=== PATIENT | female | born 1975 | race Caucasian/White ===

== ENCOUNTER 2020-03-23 00:56 | Outpatient (CLI) | payer OTHER, BC, SELFPAY ==
[2020-03-23 20:51] LABS: SARS-CoV-2 RNA PCR Negative
== END 2020-03-23 00:57 | disposition home or self-care (01) ==
LOC: ANHCOVIDDT 00:57
PROVIDERS: PCP Internal Medicine; Visit Provider Plastic Surgery
DX: Z01.812 Encounter for preprocedural laboratory examination (principal); Z20.828 Contact with and (suspected) exposure to other viral communicable diseases
CPT/HCPCS: 87635; C9803; U0003

== ENCOUNTER 2020-03-25 01:36 | Day surgery (SDC) | payer OTHER, BC, SELFPAY ==
[2020-03-11 11:00] VITALS: BMI 36.5
--- NOTE | 2020-03-25 07:09 | WPDHPUPDATE1 ---
History and Physical Update Update Date/Time: 03/25/20 07:09 History and Physical has been reviewed, including an updated exam of the patient. There are NO changes in the patient's condition. Risks, benefits, and alternatives have been discussed and questions answered. Patient agrees to proceed with procedure.
[2020-03-25 07:39] VITALS: BP 128/77; PULSE 90; RESP 16; TEMP 36.6; O2SAT 100
--- NOTE | 2020-03-25 07:47 | WPDANESEPPF ---
Anes - Initial Pre Proc Eval Procedure: Operation Date: 03/25/20 09:00 Proposed Procedures p Release Of The Left First Dorsal Compartment - Aniket Beal MD Date/Time: 03/25/20 07:47 Surgeon: Aniket Beal MD Pre Op Diagnosis: Left First Dorsal Compartment Syndrome Patient Data Age: 44 Gender: F Height: 5 ft 8 in Weight: 104.8 kg Last Vital Signs Temp 36.6 C 03/25/20 07:39 Pulse 90 03/25/20 07:39 Resp 16 03/25/20 07:39 BP 128/77 03/25/20 07:39 Pulse Ox 100 03/25/20 07:39 Allergies Allergy/AdvReac Type Severity Reaction Status Date / Time No Known Allergies Allergy Verified 03/25/20 07:03 Home Medications Medication Instructions Recorded Confirmed Type estradiol 1 mg PO DAILY 03/11/20 03/25/20 History topiramate 1 tablet PO DAILY 03/11/20 03/25/20 History Patient hx anesthesia problems: none Family hx anesthesia problems: none PMFSH Past Medical History Medical History Anxiety Hx of migraines Hypertension Family History Family History Father Family history of hypercholesterolemia Mother Family history of migraine headaches Hypertension Family history of development disorder Sibling Asthma Other Diabetes mellitus Family history of malignant neoplasm of breast Social History Social History Smoking status: Never smoker Alcohol intake: never Spiritual care concerns: No Anes - Eval Final PreProcedure Day of Procedure 03/25/20 07:47 Patient weight: obese Heart: regular rate and rhythm Lungs: clear to auscultation Airway: Mallampati scale class II Neurological: alert and oriented Last oral intake: >/= 8 hours ASA classification: III Emergent: no Anesthetic plan: proceed Anesthesia type and monitoring: general GIVS and standard monitoring Informed Consent: The patient's anesthetic plan and its attendant risks and benefits were discussed with the patient/family/POA. Questions were solicited and answers provided to the satisfaction of the patient/family/POA.
[2020-03-25] MEDS: LACTATED RINGERS 1,000 ML 30 ML IV CONT (08:44)
[2020-03-25] MEDS: LIDO 1%/EPINEPHRINE 1:100,000 20 ML VIAL 3 ML INFILTRATE (08:55)
[2020-03-25 09:40] VITALS: BP 139/71; PULSE 93; RESP 14; O2SAT 100
--- NOTE | 2020-03-25 10:02 | PM.OP ---
Procedure Note - Brief Procedure Note - Brief Date of procedure: 03/25/20 Pre-op diagnosis: Left First Dorsal Compartment Syndrome Post-op diagnosis: same Procedure performed: Left 1st dorsal compartment release Anesthesia: MAC Surgeon: Aniket Beal MD Estimated blood loss (mL): 1 Tourniquet time (min): 18 Drains: No Packing: No Pathology: none sent Complications: No immediate complications Condition: stable Disposition: same day
--- NOTE | 2020-03-25 10:04 | PM.PROC ---
Procedure Note - Detailed Date of procedure: 03/25/20 Pre-op diagnosis: Left First Dorsal Compartment Syndrome Post-op diagnosis: same Procedure performed: Left 1st dorsal compartment release Description of procedure: The left radial wrist was marked as the patient waited in the holding area. She was taken to the operating room and placed supine on the operating table. A time-out was held and confirmed. The extremity was prepped and draped in the usual fashion. She was given IV sedation. The appropriate site was infiltrated with 1% lidocaine with epinephrine the tourniquet was inflated to 250 mmHg. The incision was made as marked. Dissection was carefully carried out to expose the 1st dorsal compartment. Branches of the superficial branch of the radial nerve were identified and protected. The 1st dorsal compartment was incised along its volar aspect and opened. The contents were explored for the abductor pollicis brevis. Having identified this the wound was then closed with interrupted 4-0 Monocryl sutures in the dermis. No additional sutures were placed. The usual bandage was applied and the tourniquet was released. She is discharged home with instructions in wound care and follow-up and a prescription for hydrocodone/APAP /325 number 6 was sent. Surgeon: Aniket Beal MD
[2020-03-25 10:10] VITALS: BP 125/72; PULSE 85; RESP 14; O2SAT 100
[2020-03-25 10:20] VITALS: BP 123/75; PULSE 77; RESP 14; O2SAT 100
== END 2020-03-25 10:30 | disposition home or self-care (01) ==
PROVIDERS: PCP Internal Medicine; Visit Provider Plastic Surgery
PROC: (CPT 25000; principal; 2020-03-25 09:00)
DX: M65.4 Radial styloid tenosynovitis [de Quervain] (principal); E66.9 Obesity, unspecified; Z68.35 Body mass index [BMI] 35.0-35.9, adult
CPT/HCPCS: 25000; A9270; J2250; J2405; J2704; J3010; J7120

== ENCOUNTER 2020-11-11 11:24 | Outpatient (CLI) | payer OTHER, BC, SELFPAY | END 2020-11-11 11:25 | disposition home or self-care (01) | PROVIDERS: PCP Internal Medicine; Visit Provider Urology | DX: N39.3 Stress incontinence (female) (male) (principal); Z01.818 Encounter for other preprocedural examination | CPT/HCPCS: 87086 ==

== ENCOUNTER → 2020-11-16 01:15 | Outpatient (CLI) | payer OTHER, BC, SELFPAY ==
[2020-11-16 17:12] LABS: SARS-CoV-2 RNA PCR Negative
== END ==
PROVIDERS: PCP Internal Medicine; Visit Provider Urology
DX: Z01.812 Encounter for preprocedural laboratory examination (principal); Z20.822 Contact with and (suspected) exposure to COVID-19
CPT/HCPCS: C9803; U0003; U0005

== ENCOUNTER 2020-11-19 00:57 | Day surgery (SDC) | payer OTHER, BC, SELFPAY ==
[2020-11-08 15:38] VITALS: BMI 34.2
--- NOTE | 2020-11-15 19:02 | PM.IMHP ---
H&P: HPI History of Present Illness Date/Time: 11/15/20 19:02 45 yo with NICHOLAS * Chief Complaint: NICHOLAS Review of Systems Review of Systems: All systems reviewed & are unremarkable except as noted in HPI and below PMFSH Past Medical History Medical History Anxiety Hx of migraines Hypertension Family History Family History Father Family history of hypercholesterolemia Mother Family history of migraine headaches Hypertension Family history of development disorder Sibling Asthma Other Diabetes mellitus Family history of malignant neoplasm of breast Social History Social History Smoking status: Never smoker Alcohol intake: never Substance use: never Spiritual care concerns: No Meds Home Medications and Allergies Home Medications Medication Instructions Recorded Confirmed Type estradiol 1 mg PO DAILY 03/11/20 11/08/20 History bupropion HCl 150 mg PO QAM 11/08/20 11/08/20 History Allergies Allergy/AdvReac Type Severity Reaction Status Date / Time No Known Allergies Allergy Verified 03/25/20 07:03 Exam Const: General: cooperative and healthy appearing Chest: Chest palpation & inspection: normal inspection of the chest GI: Inspection: normal to inspection Skin: General skin exam: normal color Assessment and Plan Assessment and plan (1) NICHOLAS (stress urinary incontinence, female): Code(s): N39.3 - Stress incontinence (female) (male) Status: Acute Assessment and Plan: urethral sling
[2020-11-19 06:56] VITALS: BP 136/67; PULSE 80; RESP 20; TEMP 36.2; O2SAT 100
--- NOTE | 2020-11-19 07:20 | WPDHPUPDATE1 ---
History and Physical Update Update Date/Time: 11/19/20 07:20 History and Physical has been reviewed, including an updated exam of the patient. There are NO changes in the patient's condition. Risks, benefits, and alternatives have been discussed and questions answered. Patient agrees to proceed with procedure.
[2020-11-19] MEDS: LACTATED RINGERS 1,000 ML 30 ML IV CONT (07:50)
--- NOTE | 2020-11-19 08:36 | WPDANESEPPF ---
Anes - Initial Pre Proc Eval Procedure: Operation Date: 11/19/20 09:00 Proposed Procedures p Urethral Sling - Maciej Del Real MD Date/Time: 11/19/20 08:36 Surgeon: Maciej Del Real MD Pre Op Diagnosis: stress incontinence Patient Data Age: 45 Gender: F Height: 1.73 m Weight: 103 kg Last Vital Signs Temp 36.2 C L 11/19/20 06:56 Pulse 80 11/19/20 06:56 Resp 20 11/19/20 06:56 BP 136/67 11/19/20 06:56 Pulse Ox 100 11/19/20 06:56 Allergies Allergy/AdvReac Type Severity Reaction Status Date / Time No Known Allergies Allergy Verified 11/19/20 07:40 Home Medications Medication Instructions Recorded Confirmed Type estradiol 1 mg PO DAILY 03/11/20 11/19/20 History bupropion HCl 150 mg PO QAM 11/08/20 11/19/20 History Patient hx anesthesia problems: none Family hx anesthesia problems: none PMFSH Past Medical History Medical History (Updated 11/19/20 @ 08:36 by Jeremy Friend MD) Anxiety Hx of migraines Obesity Surgical History Surgical History (Updated 11/19/20 @ 08:36 by Jeremy Friend MD) H/O wrist surgery Family History Family History Father Family history of hypercholesterolemia Mother Family history of migraine headaches Hypertension Family history of development disorder Sibling Asthma Other Diabetes mellitus Family history of malignant neoplasm of breast Social History Social History Smoking status: Never smoker Alcohol intake: never Substance use: never Living arrangements: with family Spiritual care concerns: No Anes - Eval Final PreProcedure Day of Procedure 11/19/20 08:36 Patient weight: obese Heart: regular rate and rhythm Lungs: clear to auscultation Airway: Mallampati scale class II Neurological: alert and oriented Last oral intake: >/= 8 hours ASA classification: II Emergent: no Anesthetic plan: proceed Anesthesia type and monitoring: general GIVS and standard monitoring Informed Consent: The patient's anesthetic plan and its attendant risks and benefits were discussed with the patient/family/POA. Questions were solicited and answers provided to the satisfaction of the patient/family/POA.
[2020-11-19] MEDS: levoFLOXacin 500 MG/D5W 100 ML 500 MG/100 ML BAG 100 MG IVPB (09:10)
[2020-11-19] MEDS: BUPIVACAINE/EPINEPHRINE 0.25% 10 ML VIAL INFILTRATE (09:32)
[2020-11-19 09:40] VITALS: BP 117/67; PULSE 93; RESP 16; O2SAT 96
--- NOTE | 2020-11-19 09:45 | W.PM.PROC2 ---
Procedure Note - Detailed Date of Procedure 11/19/20 Pre-op Diagnosis stress incontinence Post-op Diagnosis same Procedure Performed mid urethral sling cystoscopy Surgeon Maciej Del Real MD Indications This is a female with confirm stress urinary incontinence. She desires surgical correction. She understands the risks of bleeding, infection, injury to the urinary tract, vaginal mesh extrusion, urinary tract mesh erosion, obstructive voiding requiring a secondary procedure, hip and leg pain, dyspareunia, inability to improve overactive bladder symptoms. She agrees to proceed. Description of Procedure She was correctly identified. Informed consent obtained. She was brought the operating room. She was given appropriate anesthesia. She was given appropriate perioperative antibiotics. A time-out performed. I marked out the site of the inner thigh incisions. I anesthetized the skin and made those incisions. I anesthetized the anterior vaginal wall over the mid urethra. I made a 1 cm incision. I dissected out laterally taking great care not to injure the refilled vaginal wall. I passed the helical trocars. First on the left. Then on the right. I did this from the thigh incision towards the vaginal incision. The sling was connected to the trocars and brought out through the thigh incision. I tensioned the sling appropriately. I cut and the plastic sheaths. I then closed the incision with 2 0 Vicryl. On cystoscopy there is no tumors or surgical artifact. There was no surgical artifact in the urethra. I cut the excess sling material. Close incisions with glue. She was awakened and transferred to the PACU in stable condition. Implants Urethral sling Drains No Packing No Pathology none sent Complications No immediate complications Condition stable Disposition PACU
[2020-11-19 10:20] VITALS: BP 149/67; PULSE 100; RESP 16
[2020-11-19] MEDS: oxyCODONE HCL (*CRX) 5 MG TAB IR PO (10:30)
== END 2020-11-19 10:47 | disposition home or self-care (01) ==
PROVIDERS: PCP Internal Medicine; Visit Provider Urology
PROC: (CPT 57288; principal; 2020-11-19 09:00)
DX: N39.3 Stress incontinence (female) (male) (principal); F41.9 Anxiety disorder, unspecified; E66.9 Obesity, unspecified; Z68.34 Body mass index [BMI] 34.0-34.9, adult
CPT/HCPCS: 57288; 87086; A9270; C1771; C9803; J1100; J1885; J1956; J2250; J2405; J2704; J7030; J7120; U0003; U0005

== ENCOUNTER 2021-11-18 10:27 | Outpatient (CLI) | payer OTHER, BC, SELFPAY ==
--- NOTE | ~2021-11-18 | XR_ITS ---
EXAMINATION: XR lumbar spine min 4V DATE: 11/18/2021 11:02 INDICATION: Low back pain TECHNIQUE: Anteroposterior and lateral views in neutral, flexion, and extension of the lumbar spine w ere obtained. COMPARISON: None. FINDINGS: There are 3 mm of retrolisthesis of L5 on S1. No laxity is present with flexion or extensio n. The vertebral body alignment is otherwise normal. There is severe loss of intervertebral disc spac e height at L4-5 and moderate loss of disc space height at L3-4 and L5-S1. Small degenerative osteoph ytes project from the anterior endplates of multiple vertebral bodies. There is moderate facet osteoa rthritis of the lower lumbar spine. Surgical clips in the right upper quadrant are likely from prior cholecystectomy. IMPRESSION: 1. Moderate lower lumbar spondylosis without acute findings. Reviewed, dictated and finalized at location F.
== END 2021-11-18 10:28 | disposition home or self-care (01) ==
PROVIDERS: Visit Provider Neurological Surgery
DX: M47.896 Other spondylosis, lumbar region (principal)
CPT/HCPCS: 72110

== ENCOUNTER 2021-12-07 12:11 | Outpatient (CLI) | payer OTHER, BC, SELFPAY ==
--- NOTE | ~2021-12-07 | XR_ITS ---
EXAMINATION: XR lg joint inject/asp w image DATE: 12/07/2021 13:02 INDICATION: Left hip pain TECHNIQUE: A time-out was performed to verify the patient's name, date of , and procedure to b e performed. The procedure including the risks, benefits, and alternatives was discussed with the pat ient. Risks discussed included bleeding and infection. The patient understood the risks and agreed to proceed. The skin overlying the left hip joint was prepped and draped in usual sterile fashion. An esthetic was administered with 1% lidocaine subcutaneously. A 20 G needle was advanced under fluoros copic guidance into the joint. Injection of small amount of gas confirmed intra-articular position o f the needle. Subsequently, injectate consisting of 7 mL a 5:2 mixture of 1% lidocaine: 10 mg/mL Nas alog for a total dose of 20 mg Kenalog was instilled. Washout of contrast was seen confirming intra-a rticular administration. The needle was removed and the entry site was cleaned and dressed. There we re no immediate complications. Fluoroscopy exposure time was 0.1 minutes. The total number of images was 1. FINDINGS: Real-time fluoroscopy demonstrates the needle in the left hip joint. Patient's pain prior t o procedure:7/10. Patient's pain following the procedure: 0/10. IMPRESSION: 1. Successful left hip joint injection of local anesthetic and steroid with decrease in the patient's presenting pain. Reviewed, dictated and finalized at location A. IMPRESSION: 1. Successful left hip joint injection of local anesthetic and steroid with dec rease in the patient's presenting pain.
== END 2021-12-07 12:12 | disposition home or self-care (01) ==
PROVIDERS: Visit Provider Orthopaedic Surgery
DX: M25.552 Pain in left hip (principal)
CPT/HCPCS: 20610; 77002; J3301

== ENCOUNTER 2022-02-03 12:24 | Outpatient (CLI) | payer OTHER, BC, SELFPAY ==
[2022-02-03 13:01] LABS: Appearance Urine Clear (Clear); Basophils Percent Auto 0.3 % (0.2-1.2); Bilirubin Urine Negative (Negative); Blood Urine Negative (Negative); Color Urine Yellow (Yellow); Eosinophils Absolute Auto 0.1 K/mm3 (0-0.3); Eosinophils Percent Auto 1.2 % (0-4.4); Glucose Urine UA Negative (Negative); Hematocrit 37.4 % (37.0-47.0); Hemoglobin 12.4 g/dL (12.0-15.0); Immature Granulocyte Absolute 0.02 K/mm3 (0.00-0.031); Immature Granulocyte Percent A 0.3 % (0-0.5); Ketones Urine Negative (Negative); Leukocyte Esterase Ur Negative LEU/UL (Negative); Lymphocytes Absolute Auto 2.22 K/mm3 (0.9-3.2); Lymphocytes Percent Auto 38.4 % (18.3-44.2); Mean Corpuscular HGB Conc 33.2 g/dl (32-36); Mean Corpuscular Hemoglobin 29.5 pg (26-34); Mean Corpuscular Volume 88.8 fl (80-100); Mean Platelet Volume 10.4 fl (7.4-10.4); Monocytes Absolute Auto 0.4 K/mm3 (0.1-0.6); Monocytes Percent Auto 7.6 % (2.6-8.5); Neutrophils Percent Auto 52.2 % (45.5-73.1); Nitrate Urine Negative (Negative); Platelet Count Result 263 k/mm3 (150-375); Protein Urine Negative (Negative); Red Blood Count 4.21 M/mm3 (4.2-5.4); Red Cell Distribution Width 13.7 % (11.5-14.5); Urobilinogen Urine 0.2 mg/dL (<2.0); White Blood Count 5.8 K/mm3 (4.5-10.0)
[2022-02-03 13:11] LABS: INR 1.1; Prothrombin Time 13.3 Seconds (11.1-14.7)
[2022-02-03 13:12] LABS: Partial Thromboplastin Time 31.4 SECONDS (22.3-36.8)
[2022-02-03 13:13] LABS: Anion Gap 11 mmol/L (8-16); Blood Urea Nitrogen 15 mg/dL (7-17); Calcium 9.2 mg/dL (8.4-10.2); Carbon Dioxide 30 mmol/L (22-30); Chloride 101 mmol/L (98-107); Estimated Glomerular Filt Rate > 60; Glucose 110 mg/dL (65-110); Sodium 142 mmol/L (137-145)
[2022-02-03 14:17] LABS: Add Urine Microscopic? NO
== END 2022-02-03 12:25 | disposition home or self-care (01) ==
LOC: ANHSURGERY 12:29
PROVIDERS: Visit Provider Neurological Surgery
DX: Z01.818 Encounter for other preprocedural examination (principal)
CPT/HCPCS: 36415; 80048; 81003; 85025; 85610; 85730; 86850; 86900; 86901

== ENCOUNTER 2022-02-08 01:45 | Day surgery (SDC) | payer OTHER, BC, SELFPAY ==
[2022-02-01 14:32] VITALS: BMI 32.8
--- NOTE | 2022-02-01 15:05 | PC.NURSE ---
Report to the Outpatient Waiting Room, entrance under the green pavilion located off [facility], at time _0600 on date _02/08/22 . OR Time: __30 . Time changes happen often and if your time is changed the preop area will call you the afternoon before. - You and your visitor will be asked to self-screen and do not enter if you have any COVID symptoms. - Only one visitor and NO children visitors are allowed at this time. - The patient visitor is requested to leave or wait in car when not with patient due to restrictions. - A mask is required within the hospital. Patients may have clear liquids (water, carbonated beverages, clear teas, apple juice) until 3 hours prior to surgery with a maximum of 20 ounces. - No food from midnight until time of surgery YOU MAY HAVE CLEAR LIQUIDS UNTIL - Take the following medications with a SIP of water the morning of surgery: _ESCITALOPRAM, LORAZEPAM, ESTRADIOL; TOPAMAX Medications to discontinue per physician N/A Date to take last dose N/A Please no make-up, nail macedonian, hairspray, perfume, deodorant, or body powder the day of surgery. No jewelry (including any body piercings) or valuables the day of surgery, leave them at home. Please take a shower or bath the night before, or the morning of, surgery with an antibacterial soap. Wear comfortable, loose fitting clothing. - Jewelry must be removed prior to entering the operating room. Rings and piercings that are not removed may be cut off. - The hospital will not accept responsibility for valuables. - Please leave all valuables, including medications, at home the day of surgery. If you are going home after surgery, a licensed flatbed truck driver must drive you home. - NO public transportation without another adult. - We recommend that an adult stay with you for 24 hours following discharge. - We also recommend that you do not drive, make important decision, drink alcoholic beverages, or take any drugs that were not prescribed by your health care provider for at least 24 hours after your discharge time. Follow any additional instructions given to you from your surgeon. If you or anyone in your household have experienced Covid symptoms in the past week, please notify your surgeon or the nurse liaison at the phone number below for possible testing. Telephone instructions given to __MARY and asked if any additional questions and then verbalized understanding. Patient advised to call surgeon office or pre surgery nurse liaison [phone] if any additional questions.
--- NOTE | 2022-02-07 12:21 | P.PNAN_ITS ---
Anes - Initial Pre Proc Eval Procedure: Operation Date: 02/08/22 07:30 Proposed Procedures p Lumbar Lateral Recess, Lateral Decompression Left L5-S1 - Elizabeth Hassan MD Date/Time: 02/07/22 12:21 Surgeon: Elizabeth Hassan MD Pre Op Diagnosis: lumbar spondylosis Patient Data Age: 46 Gender: F Height: 1.73 m Weight: 98 kg Allergies Allergy/AdvReac Type Severity Reaction Status Date / Time No Known Drug Allergies Allergy no Verified 02/08/22 06:06 allergies Home Medications Medication Instructions Recorded Confirmed Type topiramate 50 mg tablet 50 mg PO BID 11/30/21 02/08/22 History escitalopram oxalate 10 mg tablet 10 mg PO DAILY 01/04/22 02/08/22 History trazodone 50 mg tablet 50 mg PO QHS PRN Insomnia 01/04/22 02/08/22 History estradiol 2 mg tablet 2 mg PO DAILY 02/01/22 02/08/22 History lorazepam 0.5 mg tablet 0.5 mg PO BID PRN Anxiety 02/01/22 02/08/22 History Patient hx anesthesia problems: none Family hx anesthesia problems: none Results Review: All pre-operative results and documents have been reviewed as part of the pre- operative evaluation. [facility] Past Medical History Medical History (Updated 02/07/22 @ 12:22 by Anoop Reyes MD) Anxiety Gallbladder abscess Hernia Hx of migraines Lumbar spondylosis Obesity Surgical History Surgical History H/O neck surgery H/O wrist surgery H/O: hysterectomy History of cholecystectomy History of hernia repair Family History Family History Father Family history of hypercholesterolemia Hypertension Heart disease Mother Family history of migraine headaches Hypertension Family history of development disorder Depression Sibling Asthma Hypertension Grandparent Alcoholism Diabetes mellitus Heart disease Other Cerebrovascular accident Family history of malignant neoplasm of breast Social History Social History Smoking status: Never smoker Alcohol intake: never Substance use: never Substance use type: does not use Living arrangements: with family 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 Informed Consent: The patient's anesthetic plan and its attendant risks and benefits were discussed with the patient/family/POA. Questions were solicited and answers provided to the satisfaction of the patient/family/POA.
[2022-02-08] VITALS (10 sets, daily range): BP systolic 115–136; BP diastolic 72–83; PULSE 70–87; RESP 16–20; TEMP 36.2–36.6; O2SAT 99–100
--- NOTE | ~2022-02-08 | XR_ITS ---
EXAMINATION: XR fluoroscopy no charge DATE: 02/08/2022 8:00 CDT INDICATION: LUMBAR LAT. DECOMPRESSION . TECHNIQUE: 1 fluoroscopic image of the lumbar spine were obtained during lumbar lateral decompression performed by the surgeon. I was not present in the operating room. Fluoroscopy exposure time was 3 s econds. Air Kerma 3.0354 mGy. DAP 0.0602 mGym2. COMPARISON: 11/18/2021 FINDINGS: A radiopaque instrument projects adjacent to the inferior aspect of the inferior articulating facet o f L5, grossly at the level of the L5-S1 disc space. IMPRESSION: Fluoroscopic documentation/localization duringlumbar lateral decompression. Please refer to the opera tive note for complete procedural details . Reviewed, dictated and finalized at location K. IMPRESSION: Fluoroscopic documentation/localization duringlumbar lateral decompression. Ple ase refer to the operative note for complete procedural details .
[2022-02-08] MEDS: LACTATED RINGERS 1,000 ML 30 ML IV CONT ×2 (06:25→09:26)
--- NOTE | 2022-02-08 07:41 | PM.IMHP ---
H&P: HPI History of Present Illness Date/Time: 02/08/22 07:41 Chief Complaint: Tamika He? is a very pleasant 46-year-old female who originally presented and was seen in early November 2021 at the request of? Dr. Baxter with a history of low back and left lower extremity symptoms.? The patient notes symptoms for approximately 6 months.? She notes almost entirely left-sided symptoms.? She describes the pain in the left buttock with radiation to the posterior thigh, calf, chawla, and the dorsal aspect of the foot.? She notes pain that she rates as a 7/10 in the office.? Her pain increases to 10/10 when severe.? She does not have days that are pain-free.? Her pain interrupts her sleep.? She notes sensory change in a similar distribution particularly on the dorsal aspect of the foot.? She does notice subjective sense of weakness in dorsiflexion.? The patient also notes some pain focally about the left hip joint and notes some pain with activities including getting in and out of a car. Tamika has undergone MR imaging the lumbar spine performed on July 26, 2021 at [facility].? This shows mild multilevel spondylitic changes with disc desiccation and loss of disc space height at multiple levels.? At the L5-S1 level there is a broad-based disc bulge disc bulge with a foraminal and extraforaminal disc protrusion.? This contributes to severe left neuroforaminal stenosis and moderate lateral recess stenosis.? At all other levels there is not significant central or neuroforaminal? stenosis. ? Tamika has participated in physical therapy.? She feels that if anything,? this aggravated her symptoms.? She has seen Dr. Baxter and she has undergone epidural steroid injection targeting L5-S1 on the left.? This gave some relief of her pain for perhaps a few hours but did not last for any longer and by the next day she was back to her baseline level of pain.? She has tried gabapentin but had stomach complaints with this medication.? She is taking muscle relaxants which gives some mild amount of relief but no significant relief.? She has not had prior? back surgery At our initial visit Tamika also had described some focal pain in the left hip. She has seen an orthopedic surgeon and a hip injection was recommended. She states that this gave some relief of her hip symptoms but her more distal left lower extremity symptoms persist and are limiting. She has undergone AP lateral and dynamic plain xrays that show degenerative changes, with loss of disc space height at L4-5, but no suggestion of significant listhesis or dynamic instability. ? She is inclined to pursue surgery and is admitted today for this procedure PMF Past Medical History Medical History (Updated 02/07/22 @ 12:22 by Anoop Reyes MD) Anxiety Gallbladder abscess Hernia Hx of migraines Lumbar spondylosis Obesity Surgical History Surgical History H/O neck surgery H/O wrist surgery H/O: hysterectomy History of cholecystectomy History of hernia repair Family History Family History Father Family history of hypercholesterolemia Hypertension Heart disease Mother Family history of migraine headaches Hypertension Family history of development disorder Depression Sibling Asthma Hypertension Grandparent Alcoholism Diabetes mellitus Heart disease Other Cerebrovascular accident Family history of malignant neoplasm of breast Social History Social History Smoking status: Never smoker Alcohol intake: never Substance use: never Substance use type: does not use Living arrangements: with family 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
--- NOTE | 2022-02-08 07:43 | WPDHPUPDATE1 ---
History and Physical Update Update Date/Time: 02/08/22 07:43 History and Physical has been reviewed, including an updated exam of the patient. There are NO changes in the patient's condition. Risks, benefits, and alternatives have been discussed and questions answered. Patient agrees to proceed with procedure.
[2022-02-08] MEDS: ceFAZolin 2 GM/D5W 50 ML 2 GM/50 ML BAG IVPB (07:50)
[2022-02-08] MEDS: LIDO 1%/EPINEPHRINE 1:100,000 50 ML VIAL 10 ML INFILTRATE (08:27)
[2022-02-08] MEDS: methylPREDNISolone ACETATE 40 MG/ML VIAL IM (08:59)
--- NOTE | 2022-02-08 09:10 | W.PM.PROC2 ---
Procedure Note - Detailed Date of Procedure 02/08/22 Pre-op Diagnosis lumbar spondylosis Post-op Diagnosis Same Procedure Performed posterior lumbar decompression L5-S1 with far lateral and neuroforaminal decompression of L5 Surgeon Elizabeth Hassan MD Anesthesia General Indications Tamika He? is a very pleasant 46 year female who presents with low back and left lower extremity pain, sensory change, and mild objective weakness in the setting of lumbar spondylosis with severe neural foraminal and lateral recess stenosis at L5-S1 on the left.? Tamika also has some pain about the left hip both objectively and on examination which, at our initial visit,? made me concerned about a possible contribution of her left hip to her overall symptoms.? Her symptoms, as well as her exam findings, however, fit with an L5 radiculopathy.? She has tried conservative measures that include a formal course of physical therapy as well as 1 epidural steroid injection.? She has also tried neuropathic pain medications and has not tolerated gabapentin.? She is increasingly frustrated by her pain and is concerned about mild weakness which has been present for approximately 6 months time.? She is inclined to consider surgery. I have emphasized that my strong preference is always to exhaust nonoperative measures prior to consideration of surgery.? In Denita's situation, however, she does have a finding of mild weakness.? She has tried a formal course of physical therapy and has not seen greater than 24 hours relief with an epidural steroid injection.? There was concordance between her MRI and her clinical symptoms.? I have explained to her that my primary concern was that her hip might be a contributor to some for pain, but as she has not had full relief with a hip injection, and as Dr. Mosquera appears to agree that a great deal of her symptoms are more referable to the lumbar spondylosis than the left hip, it would be reasonable to pursue surgery..? In this particular instance, surgery would entail a lateral recess as well as a far lateral and neural foraminal decompression at L5-S1 on the left.? We have discussed the indications as well as the risks of surgery, including but not limited to bleeding, infection, CSF leak, numbness, weakness, paralysis stroke coma even .? We have discussed the typical recovery from surgery.? Tamika indicates understanding and asks us to proceed Findings significant neuroforaminal stenosis L5-S1 left Description of Procedure The patient was brought into the operating room where general anesthesia was induced without complications. Appropriate monitoring and access was achieved. the patient was turned into a prone position on the operating table. All extremities were padded The L5-S1 level was confirmed and identified using fluoroscopy. The incision was planned and the site was prepped and draped sterilely. A time out was performed. A linear incision was made using a #10 blade scalpel. Dissection was carried down to the spinous process and the paraspinal muscle was dissected off of the lamina of L5 using electrocautery. Self retaining retractors were advanced. A curette was placed under the L5 lamina and localization was confirmed with fluoroscopy. A high speed carmel drill was used to drill the left hemilamina of L5 and the medial facet. The pars was drilled to facilitate neuroforaminal decompression. The medial facet was removed en bloc and then the bone overlying the lateral recess and nerual foramen was removed using kerossen punches. There was some fat in the lateral recess This was cauterized and the passing and exiting nerve roots were visualized and felt to be free. The disc space was explored and there was not a soft disc herniation, but after the bony and ligamentous decompression the left L5 and S1 neural foramen were free and the nerve roots were no longer compressed. The wound was copiously irrigated. Hemostasis was achieved. Nilson
[2022-02-08] MEDS: fentaNYL CITRATE INJ (*CRX) 100 MCG/2 ML VIAL 25 MCG IV PUSH ×4 (09:59→10:23)
[2022-02-08] MEDS: oxyCODONE HCL (*CRX) 5 MG TAB IR PO (10:39)
--- NOTE | 2022-02-08 10:43 | SUR.PHASEII ---
1041 - DR. AVILES TALKING WITH PT. DR. AVILES STATED THAT PATIENT HAS HER HOME CARE INSTRUCTIONS THAT WERE GIVEN TO HER AT HER OFFICE VISIT.
[2022-02-08] MEDS: ONDANSETRON INJ 4 MG/2 ML VIAL IV PUSH (10:50)
== END 2022-02-08 12:06 | disposition home or self-care (01) ==
PROVIDERS: Visit Provider Neurological Surgery
PROC: (CPT 63030; principal; 2022-02-08 07:30)
DX: M47.816 Spondylosis without myelopathy or radiculopathy, lumbar region (principal); F41.9 Anxiety disorder, unspecified; E66.9 Obesity, unspecified; Z68.31 Body mass index [BMI] 31.0-31.9, adult
CPT/HCPCS: 63056; 36415; 80048; 81003; 85025; 85610; 85730; 86850; 86900; 86901; 99199; A9270; C9290; J0690; J1030; J1100; J2250; J2405; J2704; J2710; J3010; J3370; J7120

== ENCOUNTER 2022-07-03 08:11 | Outpatient (CLI) | payer OTHER, BC, SELFPAY ==
--- NOTE | ~2022-07-03 | MM_ITS ---
EXAMINATION: MM screening ernestine BI w griselda HISTORY: Screening mammogram TECHNIQUE: Craniocaudal and mediolateral oblique 3-D tomosynthesis images were obtained and synthetic 2-D images were generated. CAD analysis was submitted and interpreted. COMPARISON: 08/17/2011 bilateral diagnostic mammography and right breast ultrasound BREAST PARENCHYMAL COMPOSITION: There are scattered areas of fibroglandular density. FINDINGS: There is no evidence of suspicious mass, calcification, or architectural distortion to sugg est malignancy in either breast. There has been no suspicious interval change. IMPRESSION: 1. No mammographic evidence of malignancy. 2. Recommend routine screening mammography in one year. BI-RADS Category 1: Negative Reviewed, dictated and finalized at location A. ROOM OPERATOR
== END 2022-07-03 08:12 | disposition home or self-care (01) ==
LOC: ANHIMG 08:17
PROVIDERS: Visit Provider Obstetrics & Gynecology
DX: Z12.31 Encounter for screening mammogram for malignant neoplasm of breast (principal)
CPT/HCPCS: 77063; 77067

== ENCOUNTER 2022-09-08 10:56 | Outpatient (CLI) | payer OTHER, BC, SELFPAY ==
--- NOTE | ~2022-09-08 | XR_ITS ---
Lumbosacral Spine: AP and lateral views Clinical History: Pain COMPARISON: 11/18/2021 Findings: The normal lordotic curve is maintained. No fracture or subluxation seen. There is advanced degenerative disc narrowing at L4-L5. There is mild degenerative change at L3-L4. The sacroiliac marzena nts are normally outlined. Impression: Advanced degenerative disc narrowing at L4-L5, similar to prior exam. Mild degenerative disc change at L3-L4. Reviewed, dictated and finalized at location . Impression: Advanced degenerative disc narrowing at L4-L5, similar to prior exam. Mild degenerative disc change at L3-L4.
== END 2022-09-08 10:57 | disposition home or self-care (01) ==
PROVIDERS: Visit Provider Neurological Surgery
DX: M51.36 Other intervertebral disc degeneration, lumbar region (principal)
CPT/HCPCS: 72100

== ENCOUNTER 2024-05-20 07:27 | Outpatient (CLI) | payer OTHER, BC, SELFPAY ==
--- NOTE | ~2024-05-20 | XR_ITS ---
AP view of the pelvis and AP and lateral views of the left hip Clinical history: Pain Findings: No acute fracture or dislocation is seen. Osseous alignment is anatomic. Bilateral hip and SI joint spaces are preserved. Degenerative spondylosis of lumbar spine noted. Soft tissues are unrem arkable. Impression: Left hip is unremarkable. Degenerative spondylosis of the visualized lower lumbar spine. Reviewed, dictated and finalized at location M. FEEDER Impression: Left hip is unremarkable. Degenerative spondylosis of the visualized lower lumbar spine.
== END 2024-05-20 07:28 | disposition home or self-care (01) ==
PROVIDERS: PCP Orthopaedic Surgery; Visit Provider Orthopaedic Surgery
DX: M25.552 Pain in left hip (principal); M47.816 Spondylosis without myelopathy or radiculopathy, lumbar region
CPT/HCPCS: 73502

== ENCOUNTER 2024-11-28 14:46 | Outpatient (CLI) | payer OTHER, BC, SELFPAY ==
--- NOTE | ~2024-11-28 | MR_ITS ---
MRI of the left hip Clinical history: Trochanteric bursitis Technique: Coronal T1-weighted, T2-weighted, and proton-density fat-sat images, and axial T1-weighted and proton-density fat-sat images were acquired through the pelvis. Coronal T2-weighted images and c oronal, axial, and sagittal proton-density fat-sat images were acquired through the left hip. Findings: There is no fracture or avascular necrosis of either hip. Bone marrow signals the proximal femora and pelvic bones are unremarkable. There is moderate chondromalacia diffusely involving both h ip joints, mild bilateral joint space narrowing. No significant joint effusion. No left acetabular la bral tear. Visualized musculature about the pelvis and left hip is unremarkable. Visualized tendons are intact. No soft tissue mass or fluid collection. No distinct bursitis evident. IMPRESSION: Moderate degenerative change of both hip joints, as detailed above. No acute abnormality seen. Reviewed, dictated and finalized at location .
== END 2024-11-28 14:47 | disposition home or self-care (01) ==
LOC: MICIMG 14:47
PROVIDERS: PCP Orthopaedic Surgery; Visit Provider Orthopaedic Surgery
DX: M70.62 Trochanteric bursitis, left hip (principal)
CPT/HCPCS: 73721

== ENCOUNTER 2024-12-15 01:23 | Day surgery (SDC) | payer OTHER, BC, SELFPAY ==
[2024-12-09 10:07] VITALS: BMI 31.9
--- NOTE | 2024-12-09 10:33 | PC.NURSE ---
Report to the Outpatient Waiting Room, entrance under the green pavilion located off [facility], at time _0730 on date _12/15/24 . Planned Procedure Time: .? Time changes happen often and if your time is changed the preop area will call you the afternoon before. - You and your visitor will be asked to self-screen and do not enter if you have any COVID symptoms. Please call surgeon if you need to reschedule. - A mask is optional within the hospital at this time. Patients may have clear liquids (water, carbonated beverages, clear teas, apple juice) until 3 hours prior to surgery with a maximum of 20 ounces. - No food from midnight until time of surgery and no smoking, or chewing tobacco (or any form of nicotine). No chewing gum, candy or mints. Take only the following medications with a SIP of water on the morning of surgery: ___ESCITALOPRAM, LORAZEPAM DO NOT STOP ANY OF YOUR OTHER PRESCRIPTION MEDICATIONS PRIOR TO SURGERY EXCEPT THE FOLLOWING Hold all vitamins and supplements for 3 days per anesthesiologist. Medications to discontinue per physician N/A Date to take last dose___N/A Please no make-up, nail hebrew, hairspray, perfume, deodorant, or body powder the day of surgery.? No jewelry (including any body piercings) or valuables the day of surgery, leave them at home.? Please take a shower or bath the night before, or the morning of, surgery with an antibacterial soap.? Wear comfortable, loose fitting clothing.? - Jewelry must be removed prior to entering the operating room.? Rings and piercings that are not removed may be cut off. - The hospital will not accept responsibility for valuables.? - Please leave all valuables, including medications, at home the day of surgery. If you are going home after surgery, a licensed gravel truck driver must drive you home.? - NO public transportation without another adult if you receive anesthesia. - We recommend that an adult stay with you for 24 hours following discharge. - We also recommend that you do not drive, make important decision, drink alcoholic beverages, or take any drugs that were not prescribed by your health care provider for at least 24 hours after your discharge time. Follow any additional instructions given to you from your surgeon. Telephone instructions given to __BETH and asked if any additional questions and then verbalized understanding. Patient advised to call surgeon office or pre surgery nurse liaison [phone] if any additional questions.
[2024-12-15] VITALS (7 sets, daily range): BP systolic 125–153; BP diastolic 70–90; PULSE 65–87; RESP 14–18; TEMP 36.4–36.6; O2SAT 98–100
--- OUTSIDE RECORDS SUMMARY | 2024-12-15 01:26 | XMS_ITS | Data Portability ---
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 Patient will come back in a year unless there are new symptoms. [email or web address] Not available 04/01/2022 10:42:44 04/20/2023 04/20/2023 Annual gynecological exam performed. Patient will come back in a year unless there are new symptoms. Not available 04/20/2023 10:32:42 05/25/2023 05/25/2023 Annual gynecological exam performed. Patient will come back in a year unless there are new symptoms. Not available 05/25/2023 09:31:33 Plan of Treatment Reminders Order Date Submit Date Provider Last Modified By Organization Details Last Modified Time Details Appointments None recorded. Lab None recorded. Referral None recorded. Procedures None recorded. Surgeries None recorded. Imaging None recorded. Medication Orders Vagifem 10 mcg vaginal tablet 2023 024 MARTHA [id number], [address] , [place], [place], [id number], 13:58:41 Bactrim DS 800 mg-160 mg tablet 2023 024 [facility] #[id number], [address], [place], [place], [id number], 4 09:56:40 estradiol 2 mg tablet 2022 023 MARTHA [facility] #[id number], [address], [place], [place], [id number], 3 11:18:23 testosteron e cypionate 100 mg/mL intramuscul ar oil 2021 022 [facility] #[id number], [address], [place], [place], [id number], 3 10:47:11 Patient TargetsNo targets recorded. Patient InstructionsNo instructions recorded. Reason for Referral None Reported. Results Created Date Observation Date Name Description Value Unit Range Abnormal Flag Note LastModifiedBy Organization Detail LastModifiedTime 04/03/20 22 04/03/2022 IMAGE GUIDE D PAP AND HPV REGAR DLESS image guided Pap, HPV regardless of Pap result SEE RESULT S BELOW CASE REPOR T: Cytol ogy Gynec ologi elvie Repor t Case: [id number] [employer] duque Provi shanel: Jerry Powell MD Colle cted: 04/03 0821 Order ing Locat ion: [place] [facility] Recei uday: 04/04 0557 First Scree n: Jeannette Austin, CT Rescr een: Nicole Haynes ret, CT Speci men: Scree cyn Pap - Image d, Cervi x STATE MENT OF ADEQU ACY: Satis facto ry for evalu ation Trans forma tion zone compo nent absen t The absen ce of an endoc ervic al compo nent was confi rmed by an addit ional mariajose ner. FINAL DIAGN OSIS: Negat almaz for Intra epith elial Lesio n or Marylou sexton (NIL) . Elect lv mcduffie ren d by Nicole Haynes ret, CT on 04/06 at 3:29 PM ----- ----- ----- ----- ----- ----- ----- ----- ----- ----- ----- ----- ----- ----- ----- ----- ----- ---- HPV RESUL TS: HPV mRNA E6/E7 : No HPV mRNA Detec joanna NOTE: This high risk HPV mRNA assay detec ts fourt een high- risk HPV types (16, 18, 31, 33, 35, 39, 45, 51, 52, 56, 58, 59, 66, 68) witho ut diffe renti ation . COMME NT: Note: This speci men was revie wed by a Cytot echno logis t and/o r Patho logis t (as indic ated in this repor t) after evalu ation using the Thinp rep Imagi ng Syste m. CLINI ELVIE INFOR MATIO N: Menst rual Statu s: LMP (if appli cable ): Clini elvie Histo ry/Pr eviou s Pap: Type of Neopl elizabeth (if appli cable ): Signi fican t Clini elvie Findi ngs: Other Histo ry: Hormo yaneth (if appli cable ): PAP EDUCA KAM L NOTE: The Pap Test is a scree cyn test with an inher ent false negat almaz rate. Liqui d-bas ed sampl ing may decre ase, but will not elimi brenda, false negat almaz resul ts. A negat almaz resul t does not precl ude the prese nce and/o r devel opmen t of disea se, since the prese nce of abnor mal cells in the sampl e depen ds on the locat ion of the lesio n and sampl ing techn ique. Polo nued regul ar scree cyn is the best metho d of cance r preve ntion . If repor joanna cytol ogic findi ng do not corre late with physi elvie and/o r histo rical findi ngs, [facility] inves tigat ion is recom alice d, as clini malcolm jain nted. Not Available [facility] (Lab) [address], [place], [address], 04/06/2022 16:31:46 05/25/19 24 05/25/2023 IMAGE GUIDE D PAP AND HPV REGAR DLESS image guided Pap, HPV regardless of Pap result SEE RESULT S BELOW CASE REPOR T: Cytol ogy Gynec ologi elvie Repor t Case: [id number] [employer] Provi shanel: Jerry Powell MD Colle cted: 05/25 1348 Order ing Locat ion: [place] Path[facility] [place] Recei uday: 05/28 0724 First Scree n: Jeannette Austin, CT Speci men: Mariajose addison Pap - Image d, Vagin a STATE MENT OF ADEQU ACY: Satis facto ry for evalu ation FINAL DIAGN OSIS: Negat almaz for Intra epith elial Lesio n or Marylou sexton (NIL) . Elect lv mcduffie ren d by Jeannette Austin, CT on 024 at 3:05 PM ----- ----- ----- ----- ----- ----- ----- ----- ----- ----- ----- ----- ----- ----- ----- ----- ----- ---- HPV RESUL TS: HPV mRNA E6/E7 : No HPV mRNA Detec joanna NOTE: This high risk HPV mRNA assay detec ts fourt een high- risk HPV types (16, 18, 31, 33, 35, 39, 45, 51, 52, 56, 58, 59, 66, 68) witho ut diffe renti ation . COMME NT: This speci men was revie wed by a Cytot echno logis t and/o r Patho logis t (as indic ated in this repor t) after evalu ation using the Thinp rep Imagi ng Syste m. CLINI ELVIE INFOR MATIO N: Menst rual Statu s: LMP (if appli cable ): Clini elvie Histo ry/Pr eviou s Pap: Type of Neopl elizabeth (if appli cable ): Signi fican t Clini elvie Findi ngs: Other Histo ry: Hormo yaneth (if appli cable ): PAP EDUCA KAM L NOTE: The Pap Test is a scree cyn test with an inher ent false negat almaz rate. Liqui d-bas ed sampl ing may decre ase, but will not elimi brenda, false negat almaz resul ts. A negat almaz resul t does not precl ude the prese nce and/o r devel opmen t of disea se, since the prese nce of abnor mal cells in the sampl e depen ds on the locat ion of the lesio n and sampl ing techn ique. Polo nued regul ar scree cyn is the best metho d of cance r preve ntion . If repor joanna cytol ogic findi ng do not corre late with physi elvie and/o r histo rical findi ngs, furth er inves tigat ion is recom alice d, as clini malcolm jain nted. Not Available [facility] (Lab) [address], [place], [address], 05/28/2023 17:58:35 07/03/19 23 07/03/2022 MAMMO , scree cyn, bilat eral No observ ation record ed. [facility] [address], [place], [address], 07/10/2022 10:57:15 01/07/20 24 01/04/2024 MAMMO , scree cyn, bilat eral No observ ation record ed. [facility] [address] [place], [address], 01/09/2024 15:52:04 Result Notes None recorded. Problems Name Problem SNOMED Code Status Onset Date Resolution Date Notes Provider Name and Address Organization Details Recorded Time Cyst of ovary Completed 201709/24/2020 Unspecif ied ovarian cyst, unspecif ied side;Rec orded Elsewher e: No Locat ion: [facility] S ource: EHR Conservation Policy Analyst ascencion: N Practi ce ID: 0001 Jluis lable Time: 04:30:00 PM Latasha rothman [facility] 1 10:05:13 Pelvic and perineal pain 198111810 Completed 201709/24/2020 Pelvic pain;Rec orded Elsewher e: No Locat ion: [facility]: N [place] ce ID: 0001 Jluis lable Time: 04:30:00 PM Latasha rothman [facility] 10:05:26 Follicul ar cyst of right ovary [id number] Completed 201709/24/2020 Follicul ar cyst of right ovary;Pr actice ID: 0001 Latasha rothman [facility] 10:05:19 Follicul ar cyst of left ovary [id number] 3697985 Completed 201709/24/2020 Follicul ar cyst of left ovary;Pr actice ID: 0001 Latasha rothman [facility] 10:05:17 Disease 79511201 Completed 201709/24/2020 Oth cond assoc w female genital organs and menstrua l cycle;Pr actice ID: 0001 Latasha rothman [facility] 10:05:15 Procedur e on genitour inary system Completed 201709/24/2020 Encounte r for surgical aftercar e followin g surgery on the genitour inary system;R ecorded Elsewher e: No Locat ion: [facility]: N [place] ce ID: 0001 Jluis lable Time: 10:00:00 AM Latasha rothman [facility] 10:05:30 Postoper ative care Completed 201709/24/2020 Encounte r for surgical aftercar e followin g surgery on the genitour inary system;R ecorded Elsewher e: No Locat ion: [facility] S ource: EHR Conservation Policy Analyst ascencion: Nicho Quickti ce ID: 0001 Jluis lable Time: 10:00:00 AM Latasha Zhang [facility] 1 10:05:28 Pain Completed 201709/24/2020 Lower abdomina l pain;Rec orded Elsewher e: No Locat ion: [facility] S ource: [facility] ascencion: N Ynesti ce ID: 0001 Jluis lable Time: 04:45:00 PM Latasha [facility] 1 10:05:11 Genuine stress incontin ence [id number] Completed 201809/24/2020 Stress incontin ence (female) (male);R ecorded Elsewher e: No Locat ion: [facility] S ource: EHR Conservation Policy Analyst ascencion: Nicho Freed ce ID: 0001 Jluis lable Time: 03:30:00 PM Latasha [facility] 1 10:05:21 Menopaus e present [id number] Completed 201809/24/2020 Menopaus al and female climacte ebony states;R ecorded Elsewher e: No Locat ion: [facility]: Nicho Quickti ce ID: 0001 Jluis lable Time: 03:30:00 PM Latasha [facility] 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 10:05:32 Menopaus al symptom 73389583 Active 2020 Carlos Powell MD [address], [place], [address], [facility] 10:30:32 Persiste nt mastalgi a 295620696 Active 2020 Carlos Powell MD [address], [place], [address], [facility] 10:30:33 Problem Notes None recorded. Procedures Surgical History Date Name Laterality Status Provider Name and Address Organization Details Recorded Time 05/25/19 24 Date of Last Pap Smear completed [facility] 05/25/2023 10:08:15 07/03/19 23 Date of Last Mammogram completed [facility] 04/20/2023 10:48:13 06/21/19 20 procedure on wrist completed [facility] 09/24/2020 10:07:32 05/21/19 20 Date of Last Colonoscopy completed [facility] 04/01/2022 10:43:17 06/21/19 18 laparoscopic bilateral salpingo-oophorecto my completed [facility] 05/25/2023 09:43:[address] [facility] 04/21/2020 15:10:18 Imaging Results None recorded. Procedure Notes None recorded. Medical Equipment None Reported. Allergies No known drug allergies Medications Name Sig Start Date Stop Date Status Note LastModified by Organization Details LastModified Time Prescript ion - Prior Authoriza tion Request 04/20 completed Not Available Not Available Not Available celecoxib 200 mg capsule Take 1 capsule every day by oral route. 03/31 completed Not Available Not Available Not Available cyclobenz aprine 10 mg tablet TAKE 1 TABLET BY MOUTH THREE TIMES DAILY NEEDED FOR MUSCLE SPASM 04/01 completed Not Available Not Available Not Available silver sulfadiaz ine 1 % topical cream APPLY TOPICALL Y TO THE AFFECTED AREA TWICE DAILY WITH DRESSING CHANGES 04/01 completed Not Available Not Available Not Available trazodone 50 mg tablet take 1 tablet by oral route 3 times every day after meals active Not Available Not Available No t Available Topamax 25 mg tablet take 1 tablet by oral route every day 09/24 completed Prescrib ed Elsewher e: Yes Loca tion: [facility] odify By: [email or web address] z Encoun ter DateTime : 06/14/19 18 02:00:00 PM Not Available Not Available Not Available hydrocodo ne 5 mg-acetam inophen 325 mg tablet TAKE 1 TABLET BY MOUTH EVERY 4 HOURS NEEDED FOR PAIN 03/31 completed Not Available Not Available Not Available meloxicam 15 mg tablet active Not Available Not Available Not Available ibuprofen 200 mg capsule take 1 capsule by oral route every 6 hours as needed 09/24 completed Prescrib ed Elsewher e: Yes Loca tion: [facility] odify By: jennifer Encounneva r DateTime : 07/17/19 19 03:30:00 PM Not Available Not Available Not Available testoster one cypionate 100 mg/mL intramusc ular oil 04/20 completed Not Available Not Available Not Available phentermi ne 37.5 mg tablet TAKE 1 TABLET BY MOUTH EVERY DAY active Not Available Not Available No t Available acetamino phen 300 mg-codein e 30 mg tablet 09/24 completed Not Available Not Available Not Available sulfameth oxazole 800 mg-trimet hoprim 160 mg tablet Take 1 tablet every 12 hours by oral route with meal(s) for 7 days. 08/02 completed Not Available Not Available Not Available phentermi ne 30 mg capsule active Not Available Not Available Not Available lorazepam 0.5 mg tablet TAKE 1 TABLET BY MOUTH TWICE DAILY NEEDED FOR EXTREME PANIC ATTACK active Not Available Not Available No t Available estradiol 1 mg tablet take 1 tablet daily 09/30 completed Increase d to 20mg per Dr. Powell Not Available Not Available Not Available dicyclomi ne 20 mg tablet 09/24 completed Not Available Not Available Not Available cephalexi n 500 mg capsule 09/24 completed Not Available Not Available Not Available gabapenti n 300 mg capsule 04/01 completed Not Available Not Available Not Available estradiol 2 mg tablet TAKE 1 TABLET BY MOUTH EVERY DAY active Not Available Not Available No t Available esterifie d estrogens -methylte stosteron e 1.25 mg-2.5 mg tablet Take 1 tablet every day by oral route. 09/30 completed Not Available Not Available Not Available hydrochlo rothiazid e 25 mg tablet 09/24 completed Not Available Not Available Not Available methylpre dnisolone 4 mg tablets in a dose pack FOLLOW PACKAGE DIRECTIO NS active Not Available Not Available No t Available phentermi ne 37.5 mg capsule Take 37 mg every day by oral route. active Not Available Not Available No t Available naproxen 500 mg tablet 09/24 completed Not Available Not Available Not Available amoxicill in 875 mg-potass ium clavulana te 125 mg tablet TAKE 1 TABLET BY MOUTH TWICE DAILY WITH FOOD FOR 7 DAYS active Not Available Not Available No t Available oxycodone 5 mg tablet 04/20 completed Not Available Not Available Not Available escitalop paola 10 mg tablet active Not Available Not Available Not Available cyclobenz aprine 5 mg tablet 09/24 completed Not Available Not Available Not Available rosuvasta tin 10 mg tablet active Not Available Not Available Not Available bupropion HCl XL 150 mg 24 hr tablet, extended release 03/31 completed Not Available Not Available Not Available topiramat e 50 mg tablet TAKE 1 TABLET BY MOUTH TWICE DAILY 04/20 completed Not Available Not Available Not Available estradiol 10 mcg vaginal tablet Insert 1 vaginal tablet per vagina nightly at HS x 14 nights; then, use twice a week @ [facility] for [facility]. active Not Available Not Available No t Available Vitals Date Recorded Body height Body mass index (BMI) Body weight Systolic And Diastolic Provider Name and Address Organization Details Last Updated DateTime 05/25/2023 167.64 cm 36 kg/m2 008839.1 g 138/87 mm[Hg] Latasha Zhang [facility] 05/25/2023 09:40:24 Date Recorded Body height Body mass index (BMI) Body weight Systolic And Diastolic Provider Name and Address Organization Details Last Updated DateTime 06/08/2023 167.64 cm 36.3 kg/m2 397288.28 g 135/82 mm[Hg] Kayrna Jayjay [facility] 06/08/2023 10:05:20 Date Recorded Body height Body mass index (BMI) Body weight Systolic And Diastolic Provider Name and Address Organization Details Last Updated DateTime 08/03/2023 167.64 cm 35.8 kg/m2 885986.51 g 128/81 mm[Hg] Luz Pierce [facility] 08/03/2023 09:55:48 Date Recorded Body height Body mass index (BMI) Body weight Systolic And Diastolic Provider Name and Address Organization Details Last Updated DateTime 04/01/2022 167.64 cm 34.7 kg/m2 13925.36 g 132/80 mm[Hg] Alexus Barrios [facility] 04/01/2022 10:42:55 Date Recorded Body height Body mass index (BMI) Body weight Systolic And Diastolic Provider Name and Address Organization Details Last Updated DateTime 04/20/2023 167.64 cm 35.8 kg/m2 092554.51 g 132/85 mm[Hg] Latasha Zhang [facility] 04/20/2023 10:46:23 Social History Question Answer Notes LastModified by Organizat ion Details LastModified Time Tobacco Smoking Status Never Smoker Lurdeswhit Plunkettyefri rothman, [facility] 06/08/2023 09:55:46 Do You Have An Advance Directive? No Information n ot available 09/24/2020 Are You Blind Or Do You Have Difficulty Seeing? No Information n ot available 09/24/2020 What Is Your Level Of Caffeine Consumption? Moderate Information not available 09/24/2020 How Much Tobacco Do You Chew? None Information not available 09/24/2020 In The 14 Days Before Symptom Onset, Have You Had Close Contact With A Laboratory-confirm ed COVID-19 While That Case Was Ill? No Information n ot available 09/24/2020 In The 14 Days Before Symptom Onset, Have You Had Close Contact With A Person Who Is Under Investigation For COVID-19 While That Person Was Ill? No Information not available 09/24/2020 Have You Been To An Area Known To Be High Risk For COVID-19? No Information not available 09/24/2020 Are You Deaf Or Do You Have Serious Difficulty Hearing? No Information not available 09/24/2020 What Type Of Diet Are You Following? REGULAR Information n ot available 09/24/2020 What Is The Highest Grade Or Level Of School You Have Completed Or The Highest Degree You Have Received? [id number] Information not available 09/24/2020 Are There Any Guns Present In Your Home? No Information not available 09/24/2020 Do You Use Protection During Sex? Always Information not available 12/24/2020 Do You Use Your Seat Belt Or Car Seat Routinely? Yes Information not available 09/24/2020 Do You Have Smoke And Carbon Monoxide Detectors In Your Home? Yes Information not available 09/24/2020 How Much Tobacco Do You Smoke? No Information not available 09/24/2020 Do You Use Sunscreen Routinely? Yes Information not available 09/24/2020 Have You Used IV Drugs? No Information not available 09/24/2020 Do You Have Difficulty Walking Or Climbing Stairs? No Information not available 08/03/2023 Sex: Unknown Functional Status Question Answer Note LastModified by Organizat ion Details LastModified Time Do you use any illicit or recreational drugs? No Information not available 09/24/2020 What is your level of alcohol consumption? None Information not available 09/24/2020 Are you able to walk? YESWOREST Information not available 09/24/2020 Are you able to care for yourself independently? 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 No Information not available 08/03/2023 What is your exercise level? Moderate Information not available 09/24/2020 Mental Status Question Answer Note LastModified by Organization D etails LastModified Time Do you feel stressed (tense, restless, nervous, or anxious, or unable to sleep at night)? [id number] Information not available 05/25/2023 Family History Relationship Description Onset Age of this Age Resolved Age Notes LastModified by Organization Details LastModified Time Mother Hypertensive disorder Not available 2019 15:09:06 Father Hypertensive disorder Not available 2019 15:09:06 Father Heart disease Not available 2019 15:09:28 Father Hyperlipidem ia [email or web address] Not available 2023 09:51:34 Maternal Grandmother Hypertensive disorder Not available 2019 15:09:06 Paternal Grandmother Hypertensive disorder Not available 2019 15:09:06 Maternal Grandfather Hypertensive disorder Not available 2019 15:09:06 Maternal Grandfather Heart disease Not available 2019 15:09:28 Paternal Grandfather Hypertensive disorder Not available 2019 15:09:06 Brother Asthma Not available 04/21/2020 15:09:55 Medical History Condition Response Other Y Depression/ depression Y Gynecological History Statement/Question Response Date of Last Colonoscopy 05/21/2019 Date of Last Mammogram 07/03/2022 Sexually Active? Y N STIs/STDs N Menses Monthly N HPV Vaccine N Date of Last Pap Smear 05/25/2023 Sexual Problems? N Current Control Method Hysterectom y LMP Unknown Obstetrics History GPAL:G 3 P 0 0 0 3 Type Value Living 3 Total 3 Past Encounters Encounter ID Performer Location Encounter Start Date Encounter Closed Date Diagnosis/Indication Diagnosis SNOMED-CT Code Diagnosis ICD10 Code Diagnosis Note [id number] Carlos Powell MD [facility] [address] [address] 09/24/2020 09:53:12 09/24/2020 11:13:42 Persistent mastalgia 400612803 N64.4 Menopausal symptom 19651 002 E89.41 Gynecologi c examination 82187528 Z01.419 This patient is here for her annual exam. A thorough history was taken. A physical exam was performed. Age appropriat e routine health screening was ordered, performed, and discussed. Recommende d testing was ordered. She was asked to follow up in one year. She will be informed of any test results. Mammogram - ordered [ ] Colonoscop y - [done ] Bone Density - [ not applicable ] Cholestero l - [done ] Pap - today Patient reports decreased sexual desire. We talked treatment options and agreed to Estratest. She will trial it for 3 months and return. We also talked about stress incontinen ce. She will be seen by Dr. Martinez. We also discussed breast tenderness . She use given precaution s and palliative measures for fibrocysti c disease. She has not had fibrocysti c disease. She will have a mammogram soon. Celebrex was prescribed . [id number] Carlos Powell MD [facility] [address] [address] 12/24/2020 09:59:02 12/24/2020 12:26:31 Persistent mastalgia [id number] N64.4 Menopausal symptom 31776 002 E89.41 This patient is a 45-year-ol d female presents virtually for follow-up medication . She is unable to get the estrogen testostero ne combinatio n medication . Not covered and too expensive. We discussed her symptoms. She has breast pain and menopausal symptoms. Breast pains improved but not resolved. Hot flashes and night sweats her all but resolved. She does has occasional symptoms at this time. She is happy with the results. We had increased her estradiol to 2 mg. she will follow-up in 1 year for her annual exam. We spent 15 minutes discussing her issues. these 2 issues are moderately complex. [id number] Carlos Powell MD [facility] [address] [address] 04/01/2022 10:36:03 04/01/2022 11:56:44 Gynecologic examination 93770657 Z01.419 Z11.51 This patient is here for her annual exam. A thorough history was taken. A physical exam was performed. Age appropriat e routine health screening was ordered, performed, and discussed. Recommende d testing was ordered. She was asked to follow up in one year. She will be informed of any test results. Mammogram - ordered Colonoscop y - done Bone Density - [ not applicable ] Cholestero l - [done ] Pap - today Patient reports decreased sexual desire. We talked treatment options and agreed to testostero ne ciprionate injection. 0.2 mg q week [id number] Carlos Powell MD [facility] [address],[place] [address] 04/20/2023 10:22:20 04/20/2023 11:23:05 Hormone replacement therapy [id number] Z79.890 47-year-ol d female presents for follow-up on hormone replacemen t therapy. She is doing well. She is no complaints . Her hot flashes and night sweats are well-contr olled. She reports satisfacti on with sexual intercours e. No pain. Spent 20 minutes face-to-fa ce. More than 50% was counseling . Talked about obesity, calorie management , exercise. [id number] Carlos Powell MD [facility] [address],[place] [address] 05/25/2023 09:01:53 05/25/2023 10:19:13 Gynecologic examination [id number] Z01.419 Z11.51 This patient is here for her annual exam. A thorough history was taken. A physical exam was performed. Age appropriat e routine health screening was ordered, performed, and discussed. Recommende d testing was ordered. She was asked to follow up in one year. She will be informed of any test results. Mammogram - ordered Colonoscop y - done Bone Density - [ not applicable ] Cholestero l - [done ] Pap - today [id number] ESTEPHANIA [facility] [address],[place] [address] 06/08/2023 09:55:20 06/08/2023 10:34:16 Labial cyst [id number] N90.7 right labial majora cyst; in the crease b/t labia and groin.Smal l but tender.Opt s for abxToo deep to I&D todayWill contact us if this issue recurs. Counseled on medication R/B's, Most common side effects, & use. All questions were answered to patient satisfacti on. Rx sent Time spent in visit is a total of 30 mins with at least 50% of visit consisting of counseling and review of plan of care. Dyspareunia [id number] N94 .10 N95.2 Trial of Vag estrogen for dyspareuni a; however, if we are not able to fully meet our goals we discussed addition of pelvic floor therapy as well. Rx sentRTO x 8wk vulva check Counseled on the following: Vaginal Dryness: Bothersome symptoms of the vagina and vulva (outer lips of the vagina) increase during and after the menopause transition or may start several years after menopause. The decrease in estrogen with menopause is a major contributo r to vaginal dryness, itching, burning, discomfort , and pain during intercours e or other sexual activity. Vaginal atrophy is the medical term that describes these changes. The genitourin sammy syndrome of menopause includes bothersome vaginal atrophy often combined with urinary symptoms. Vaginal atrophy may significan tly affect your quality of life, sexual satisfacti on, and relationsh ip with your partner. Unlike hot flashes, which generally improve with time, vaginal symptoms typically worsen with time because of aging and a prolonged lack of estrogen. Vaginal estrogen therapy An effective and safe treatment, low-dose local estrogen is applied directly to the vagina to restore vaginal health and relieve vaginal dryness and discomfort with sexual activity. Improvemen ts usually occur within a few weeks, although complete relief may take several months. This even may be an option for women with a history of breast or uterine cancer but only after careful considerat ion of risks and benefits with a healthcare provider and oncologist . Governmen t-approved low-dose vaginal estrogen products are available by prescripti on as vaginal creams (used two or three nights/wee k), a vaginal estradiol tablet (used twice/week ), and an estradiol vaginal ring (changed every 3 months). All are highly effective. You may wish to try several different forms and choose the one you prefer. Standard doses of estrogen therapy provided to treat hot flashes also treat vaginal dryness, although some women still benefit from additional low-dose vaginal estrogen treatment. If only vaginal symptoms are present, low doses of estrogen applied to the vagina are recommende d. Resources: https://ww w.[employer].org/docs /default-s ource/for- women/mn-v aginal-dry ness.pdf [id number] Carlos Powell MD [facility] [address],[place] [address] 08/03/2023 09:51:19 08/03/2023 21:52:19 Health Concerns Section Related Observation LastModified by Organization Detai ls LastModified Time None Recorded Concern Status LastModified by Organization Details LastModified Time None Recorded Advance Directives Directive N: Payers Insurance Date Sequence Insurance Name Policy Number Policy Herrera Covered Member ID Herrera Member ID Guarantor Name 09/16/2024 2 [place] [id number] Trever [id number] Tamika Panchot-End icott 09/16/2024 1 [employer] (PPO) [id number] Tamika Panchot-En dicott [id number] Tamika Panchot-End icott 09/17/2020 1 *SELF PAY* Ma micheal Panchot-End icott 04/23/2023 2 [place] [id number] Trever [id number] Tamika Panchot-End icott 08/03/2023 1 [employer] [id number] Tamika Panchot-Go eddel [id number] Tamika Panchot-End icott 09/21/2020 1 [employer] BETTER [place] OF [place] - DOS ON OR AFTER 2020 (MEDICAID REPLACEMENT - HMO) [id number] Trever [id number] Tamika Panchot-End icott 08/03/2023 1 [employer] [id number] Tamika Panchot-Go eddel [id number] Tamika Panchot-End icott 09/05/2024 1 [place] [id number] Trever Velazquez Jr [id number] Tamika Panchot-End icott Notes Date Note Type Note Provider Name and Address Organization Details Recorded Time 04/01/20 22 text/htm l Annual GYNReported by PatientHistoryFor history, patient reportsno gynecologic complaints.Genitourinary symptomsFor menstrual cycle, patient reportsnormal menses. For urinary symptoms, patient reportsno hematuriaandno incontinence. For vulva, patient reportsno genital lesion. For vagina, patient reportsnormal vaginal discharge.Breast symptomsFor breast, patient reportsno breast painandno breast lump.Endocrine symptomsFor sexual complaints, patient reportsdecreased libidobut reportsno sexual complaintsandno pain during intercourse. For menopausal symptoms, patient reportsno menopausal symptoms.Psychological symptomsFor psychological symptoms, patient reportsdepressionandanxiety (txed).Preventative measuresFor preventive measures, patient reportsencourage self breast examinationandencourage regular exercise. Carlos Powell MD [address], [place], [address], [facility] 04/01/2022 11:40:22 04/20/20 23 text/htm l Annual GYNReported by Patient 47-year-old female presents for follow-up on hormone replacement therapy. She is doing well. She is no complaints. Her hot flashes and night sweats are well-controlled. She reports satisfaction with sexual intercourse. No pain. Spent 20 minutes umdf-sw-nqat. More than 50% was counseling. Talked about obesity, calorie management, exercise. Carlos Powell MD [address], [place], [address], [facility] 04/20/2023 11:20:53 05/25/19 24 text/htm l Annual GYNReported by PatientHistoryFor history, patient reportsno gynecologic complaints.Genitourinary symptomsFor vulva, patient reportspainless genital lesion(small labia lump). For urinary symptoms, patient reportsno hematuria. For menstrual cycle, (s/p hyst).Breast symptomsFor breast, patient reportsno breast painandno breast lump.Endocrine symptomsFor sexual complaints, patient reportsno sexual complaintsandno pain during intercourse. For menopausal symptoms, patient reportsno menopausal symptomsandnormal vaginal lubrication.Psychological symptomsFor psychological symptoms, patient reportsanxiety (txed)but reportsno depression.Preventative measuresFor preventive measures, patient reportsencourage self breast examinationandencourage regular exercise. MenopauseReported by Patient Carlos Powell MD [address], [place], [address], [facility] 05/25/2023 10:03:00 06/08/19 24 text/htm l RIGO as noted in the HPI Tamika is a 48yo surgical post menopausal female here today with two concerns: 1. Labial cyst Present for almost a yearWaxes/wanesWill enlarge then seem to resolveUsually not tender or painfulThis week became large marble size and was very tender; wearing clothing irritated it with friction.No drainage. Neg pain of abd/pelvis/flankNeg urinary sx'sNeg GI sx'sNeg N/V/F/C/DNeg Vag d/c, odor, irritation, itching 2. DyspareuniaPost-hysterectom y and on Estradiol POHaving painful sexfeels like sandpaperAlso deeper penetration is aggravating right side.Going on for almost a year as well. Neg pain of abd/pelvis/flankNeg urinary sx'sNeg GI sx'sNeg N/V/F/C/DNeg Vag d/c, odor, irritation, itchingMonogamousNeg AUB Kelsey Lai, [facility]- [address], [place], [address], [facility] 06/08/2023 10:33:20 OBGyn Episode Ob Episode Information Episode Created Date Number of Fetuses Patient Bloodtype Patient rh Status Prepregnancy Weight lbs Domestic Partner Domestic Partner Phone Father Name Drywall Worker Status 04/21/20 20 1 CLOSED Fetus Data First Name Last Name Admitted to NICU Weight (g) Sex Living Outcome Pediatric Complications Fetus ID Race Codes Race Delivery Type 4139.02 7 M [id number] Vaginal Delivery Jose J Calculation Initial Jose J Date Initial Exam Date Initial Exam Provider Initial Ultrasound Date Last Menstrual Period Date Ultra Sound Weeks Gestation 0 Eighteen To Twenty Week Jose J Update Ultra Sound Date Fundal Height At Umbil Quickening Date Ultra Sound Latest Weeks Gestation Final Jose J Confirmed By Final Jose J Confirmed Date Final Jose J Date Ultra Sound Latest Days Gestation 0 0 Menstrual History Last Menstrual Date Menses Monthly On Bcp Conception Prior Menses Frequency Hcg Plus Date Menarche Onset Age Delivery Information Delivery Date Delivery Type Labor Anesthesia Weeks Gestation Incision Type Labor Labor Length Hrs Delivered By Post Complications Tubal Sterilization Discharge Date Comments 6 Isaiah Discharge Information Feeding Method Contraceptive Method Maternal HG B and HCT Levels Ob Episode Information Episode Created Date Number of Fetuses Patient Bloodtype Patient rh Status Prepregnancy Weight lbs Domestic Partner Domestic Partner Phone Father Name Drywall Worker Status 04/21/20 20 1 CLOSED Fetus Data First Name Last Name Admitted to NICU Weight (g) Sex Living Outcome Pediatric Complications Fetus ID Race Codes Race Delivery Type 4082.32 8 M [id number] Vaginal Delivery Jose J Calculation Initial Jose J Date Initial Exam Date Initial Exam Provider Initial Ultrasound Date Last Menstrual Period Date Ultra Sound Weeks Gestation 0 Eighteen To Twenty Week Jose J Update Ultra Sound Date Fundal Height At Umbil Quickening Date Ultra Sound Latest Weeks Gestation Final Jose J Confirmed By Final Jose J Confirmed Date Final Jose J Date Ultra Sound Latest Days Gestation 0 0 Menstrual History Last Menstrual Date Menses Monthly On Bcp Conception Prior Menses Frequency Hcg Plus Date Menarche Onset Age Delivery Information Delivery Date Delivery Type Labor Anesthesia Weeks Gestation Incision Type Labor Labor Length Hrs Delivered By Post Complications Tubal Sterilization Discharge Date Comments 9 Ramakrishna Discharge Information Feeding Method Contraceptive Method Maternal HG B and HCT Levels Ob Episode Information Episode Created Date Number of Fetuses Patient Bloodtype Patient rh Status Prepregnancy Weight lbs Domestic Partner Domestic Partner Phone Father Name Drywall Worker Status 04/21/20 1 CLOSED Fetus Data First Name Last Name Admitted to NICU Weight (g) Sex Living Outcome Pediatric Complications Fetus ID Race Codes Race Delivery Type 4082.32 8 M [id number] Vaginal Delivery Jose J Calculation Initial Jose J Date Initial Exam Date Initial Exam Provider Initial Ultrasound Date Last Menstrual Period Date Ultra Sound Weeks Gestation 0 Eighteen To Twenty Week Jose J Update Ultra Sound Date Fundal Height At Umbil Quickening Date Ultra Sound Latest Weeks Gestation Final Jose J Confirmed By Final Jose J Confirmed Date Final Jose J Date Ultra Sound Latest Days Gestation 0 0 Menstrual History Last Menstrual Date Menses Monthly On Bcp Conception Prior Menses Frequency Hcg Plus Date Menarche Onset Age Delivery Information Delivery Date Delivery Type Labor Anesthesia Weeks Gestation Incision Type Labor Labor Length Hrs Delivered By Post Complications Tubal Sterilization Discharge Date Comments 0 Kwan Discharge Information Feeding Method Contraceptive Method Maternal HG B and HCT Levels
--- OUTSIDE RECORDS SUMMARY | 2024-12-15 01:27 | XMS_ITS | Clinical Summary ---
Author Organization [facility] [address] Address [address] [place] [address] Care Team Providers Care Slurry Tank Operator Name Role Phone Nahun Brown Primary Care Provider [phone] Carlos Powell MD Unavailable [phone] Allergies No known active allergies Medications estradioL (ESTRACE) 2 mg tablet 1 tablet (2 mg total) bedtime 10/25/2021 Active traZODone (DESYREL) 50 mg tablet Take 1 tablet (50 mg total) by mouth nightly as needed for sleep 90 tablet 3 09/19/2023 Active rosuvastatin (CRESTOR) 10 mg tablet Take 1 tablet (10 mg total) by mouth daily 90 tablet 3 09/19/2023 Active escitalopram (LEXAPRO) 10 mg tablet Take 1 tablet (10 mg total) by mouth daily 90 tablet 3 09/19/2023 Active meloxicam (MOBIC) 15 mg tabletIndication s:Bilateral shoulder pain, unspecified chronicity Take 1 tablet (15 mg total) by mouth daily 30 tablet 1 12/27/2023 Active risperiDONE (RisperDAL) 0.5 mg tabletIndication s:Depression associated with Bipolar Disorder Take 1 tablet (0.5 mg total) by mouth nightly 30 tablet 11 05/01/2024 Active ALPRAZolam (XANAX) 0.25 mg tablet Take 1 tablet (0.25 mg total) by mouth daily as needed for anxiety 30 tablet 09/10/2024 Active Active Problems Problem Noted Date Diagnosed Date Bilateral shoulder pain 12/27/2023 Bone spur of acromioclavicular joint 12/27/2023 Menopausal symptom 12/24/2020 09/20/2022 Foraminal stenosis of cervical region 10/08/2012 09/20/2022 Depression 10/02/2012 09/20/2022 Headache 10/02/2012 09/20/2022 Overview (09/20/2022): Degeneration of lumbar or lumbosacral interverte bral disc 07/18/2010 09/20/2022 Resolved Problems Problem Noted Date Diagnosed Date Resolved Date Cubital tunnel syndrome on right 06/05/2022 05/01/2023 Overview (06/05/2022): Added automatically from request for surgery [id number] Disorder of soft tissue 06/05/202204/20 Overview (06/05/2022): Added automatically from request for surgery [id number] Right inguinal pain 10/28/2018 09/20/2022 05/01/20 Stress incontinence of urine 07/16/2018 05/01/2023 Overview (01/23/2023): Stress incontinence (female) (male);Recorded Elsewhere: No Location: [facility] Source: EHR Chronic: N Practice ID: [id number] Billable Time: 03:30:00 PM Pain 07/17/2017 05/01/2023 Overview (01/23/2023): Lower abdominal pain;Recorded Elsewhere: No Location: [facility] Source: EHR Chronic: N Practice ID: [id number] Billable Time: 04:45:00 PM Follicular cyst of left ovary 06/20/2017 05/01/2023 Overview (01/23/2023): Follicular cyst of left ovary;Practice ID: [id number] Follicular cyst of right ovary 06/20/2017 05/01/2023 Overview (01/23/2023): Follicular cyst of right ovary;Practice ID: 0001 Disease 06/20/2017 05/01/2023 Overview (02/22/2023): Oth cond assoc w female genital organs and menstrual cycle;Practice ID: [id number] Cyst of ovary 06/17/2017 05/01/2023 Overview (01/23/2023): Unspecified ovarian cyst, unspecified side;Recorded Elsewhere: No Location: [facility] Source: EHR Chronic: N Practice ID: [id number] Billable Time: 04:30:00 PM Pelvic and perineal pain 06/17/201704/2023 Overview (01/23/2023): Pelvic pain;Recorded Elsewhere: No Location: [facility] Source: EHR Chronic: N Practice ID: [id number] Billable Time: 04:30:00 PM Encounters Date Type Department Care Team Description 11/05/2024 11:00 AM CDT Office Visit [facility] Family Medicine [address] [address] Nahun Brown PA Neck pain (Primary Dx) from Last 3 Months Immunizations Immunization Administration Dates Next Due Influenza, Unspecified 11/05/2024(Deferr ed: Patient Refused),07/16/2024(Deferred: Patient Refused),05/01/2024(Deferred: Patient Refused),04/02/2024(Deferred: Patient Refused),07/20/2023(Deferred: Patient Refused),07/20/2023(Deferred: Patient Refused),05/01/2023(Deferred: Patient Refused),04/23/2023(Deferred: Patient Refused),04/23/2023(Deferred: Patient Refused),02/20/2023(Deferred: Patient Refused),01/23/2023(Deferred: Patient Refused),12/27/2022(Deferred: Patient Refused),07/21/2022(Deferred: Patient Refused),07/21/2022(Deferred: Patient Refused),07/21/2022(Deferred: Patient Refused) Td, adsorbed 11/27/2016 Tdap 11/27/2016 Surgical History Surgery Date Site/Laterality Comments CHOLECYSTECTOMY HYSTERECTOMY CERVICAL FUSION CYST REMOVAL 06/21/2022 Right wrist SPINAL CORD DECOMPRESSION Medical History Medical History Date Comments Anxiety Vaginal delivery X3 Depression Hypothyroidism Arthritis Migraines 2005 Family History Medical History Relation Name Comments Asthma Brother 1 Matthew jr Hypertension Brother 2 Jr Heart attack Father Matthew sr Hypertension Father Matthew sr Colon cancer Maternal Grandfather Ray sr Hypertension Maternal Grandfather Ray sr Arthritis Mother Tamika COPD Mother Tamika Depression Mother Tamika Hypertension Mother Tamika Obesity Mother Tamika Diabetes Other Mat Aunt Relation Name Status Comments Brother 1 Matthew jr Brother 2 Jr Father Matthew sr Maternal Grandfather Ray sr Mother Tamika Alive Other Mat Aunt Alive Social History Tobacco Use Types Packs/Day Years Used Date Smoking Tobacco: Never Smokeless Tobacco: Never Tobacco Cessation:Counseling Given: Not Answered AUDIT-C Answer Date Recorded Frequency of Alcohol Consumption Not on file 05/01/2023 Q2: How many drinks containi ng alcohol do you have on a typical day when you are drinking? Patient does not drink Frequency of Binge Drinking Not on file 04/20 PHQ-2 Answer Date Recorded PHQ-2 Total Score (If total score is 3 or more points, staff should administer the PHQ-9) 0 11/05/2024 Personal Safety Answer Date Recorded Getting School Help Needed Denies 05/01 Comments No Sex and Gender Information Value Date Recorded Sex Assigned at Not on file Legal Sex Female 1:33 PM CDT Gender Identity Not on file Sexual Orientation Not on file Obstetrics History Para Term AB IAB SAB Ectopic Multiple Livin g Live Births 3 3 3 Date Outcome GA Total Labor Labor/2nd/3rd Weight Sex Type Anes PTL Aleyda A1 A5 Name Clin Term Term Term Last Filed Vital Signs Vital Sign Reading Time Taken Comments Blood Pressure 120/76 11/05/2024 10:56 AM CDT Pulse 81 11/05/2024 10:56 AM CDT Temperature 36.6 C (97.9 F) 05/01/2023 8:09 AM 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 Respiratory Rate 18 11/05/2024 10:56 AM CDT Oxygen Saturation 98% 11/05/2024 10:56 AM CDT Inhaled Oxygen Concentration - - Weight 96.2 kg (212 lb) 11/05/2024 10:56 AM CDT Height 172.7 cm (5' 8) 11/05/2024 10:56 AM CDT Body Mass Index 32.23 11/05/2024 10:56 AM CDT Plan of Treatment Health Maintenance Due Date Last Done Comments Hepatitis B Screening 1991 Regular Well Visit/Exam 18-64 12/31/2024 01/01/2024, 01/01/2024, 12/20/2022, Additional history exists Zoster Vaccine (1 of 2) 12/31/2024 Post poned from 2023 (Patient declined, but will receive in the future) Breast Cancer Screening-Mammogram 01/06/2025 01/07/2024, 01/04/2024, 01/04/2024, Additional history exists Influenza Vaccine (#1) 2025 Depression Screening 11/05/2025 11/05/2024, 11/29/2023, 12/20/2022, Additional history exists DTaP/Tdap/Td Vaccine (2 - Td or Tdap) 11/27/2026 11/27/2016, 11/27/2016 Colon Cancer Screening-Colonoscopy 10/01/2028 10/01/2018 Cervical Cancer Screening Discontinued 04/03/2022 Hepatitis C Screening Completed 05/01/2023 Pneumococcal vaccine <65 Aged Out No longer eligible based on patient's age to complete this topic Procedures Procedure Name Priority Date/Time Associated Diagnosis Comments SCREENING MAMMOGRAM BILATERAL W JORDAN Schedule Routine, Read Routine (OP Routine) 01/04/2024 8:31 AM CDT Screening mammogram, encounter for HEPATITIS PANEL, ACUTE Routine 05/01/2023 8:58 AM 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 Rheumatoid factor positive HM PAP SMEAR WITH HPV Routine 04/03/2022 HM COLONOSCOPY Routine 10/01/2018 from Last 3 Months or Most Recently Relevant to Health Maintenance Results * Screening Mammogram Bilateral W Jordan (01/04/2024 8:31 AM CDT) Anatomical Region Laterality Modality Breast Bilateral Mammography Impressions 01/07/2024 10:53 AM CDT BI-RADS ATLAS category (overall): 1 - Negative There is no mammographic evidence of malignancy. A 1 year screening mammogram is recommended. The patient has been or will be contacted. We recommend annual screening mammography for women at average risk of breast cancer beginning at age 40, based on guidelines of the [place] [employer] (ACR Practice Parameter for the Performance of Screening and Diagnostic Mammography) and [place] [employer]. For women with and elevated risk of breast cancer, please refer to the ACR Practice Parameter for specific screening recommendations. The patient will be entered into a reminder system with a target due date of 1 year for her next screening exam. Narrative 01/07/2024 10:53 AM CDT Screening Mammogram Bilateral W Jordan: 01/04/24 The study was acquired using full field digital technology and interpreted from soft copy. 2D digital mammographic views, as well as 3D digital tomosynthesis were performed in the CC and MLO projections. CLINICAL: Screening mammogram, encounter for. No relevant medical history has been documented for this patient. No known family history of breast cancer. COMPARISON: New Baseline Screening Mammography. No prior mammography is available for comparison. BREAST TISSUE: There are scattered areas of fibroglandular density. FINDINGS: No suspicious masses, suspicious calcifications, or other suspicious findings are seen within either breast. us Self Screening Mammogram IMG MAMMO PROCEDURES Fi nal Result * Hepatitis panel, acute Blood (05/01/2023 8:58 AM 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) Hep A IgM Nonreactive Nonreactive [facility] Comment: Interpretive Data: If Hep A IgM Ab is reported as Equivocal, a new sample should be drawn in two weeks for testing. Current interpretive data was last revised on 19. Testing performed by: [facility], [address] [place] [address], [place]., [address] Hep B core IgM Nonreactive Nonreactive MARK [facility] Comment: Interpretive Data If HepB Core IgM Ab is reported as Equivocal, a new sample should be drawn in two weeks for testing. Current interpretive data was last revised on 19. Testing performed by: [facility], [address] [place] [address], [place]., [address] Hep C Ab Nonreactive Nonreactive MARK [facility] Comment: Interpretive Data Nonreactive: Antibodies to HCV not detected. Does NOT exclude the possibility of recent exposure to HCV. Equivocal: Equivocal for HCV antibodies. Supplemental molecular testing will be automatically performed to determine infection status in accordance with current CDC screening recommendations. Reactive: Positive for HCV antibodies. This may represent current or past HCV infection. Supplemental molecular testing will be automatically performed to determine current infection status in accordance with current CDC screening recommendations. Interpretive data was last revised on 2019. Testing performed by: [facility], [address] [place] [address]., [address] HepBsAg Nonreactive Nonreactive [facility] Comment:Testing performed by : [facility], [address] [place] [address]., [address] Blood 05/01/2023 8:58 AM 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 05/01/2023 10:11 AM 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 Valeria Alcaraz NP LAB MICROBIOLOGY - GENE RAL ORDERABLES Final Result [facility] [address] [facility] Department [place] [address] * HM PAP SMEAR WITH HPV (04/03/2022) Historical Provider HEALTH MAINTENANCE Final Result * HM COLONOSCOPY (10/01/2018) Historical Provider HEALTH MAINTENANCE Final Result from Last 3 Months or Most Recently Relevant to Health Maintenance Insurance [facility] BLUE [place] [employer] [place] Care Teams Slurry Tank Operator Relationship Specialty Start Date End Date Nahun Brown PA [address] [address] PCP - General Family Medicine 10/25/21 Carlos Powell MD [address] [place] [address] Referring Physician Obstetrics and Gynecology 10/27/21
--- OUTSIDE RECORDS SUMMARY | 2024-12-15 01:27 | XMS_ITS | Patient Health Record ---
Author Organization [facility] Address [address] [facility] [address] [place] [address] Care Team Providers Care Dairy Manufacturing Technologist Name Role Phone Nixon Espino Unavailable [phone] Reason For Referral No Information Medications Medication SIG (Take, Route, Frequency, Duration) Notes Start Date End Date Status Topiramate 50 MG Oral Act almaz hydroCHLOROthiazide 25 MG Oral Active Estradiol 1 MG Oral Activ e QUEtiapine Fumarate 50 MG Oral Active DULoxetine HCl 60 MG Oral Active Plan Of Treatment No Information
--- OUTSIDE RECORDS SUMMARY | 2024-12-15 01:27 | XMS_ITS | Continuity of Care Document ---
Author Organization [facility] [place] [address] [place] [address] Phone Care Team Providers Care Locomotive Operator Name Role Phone [facility] Unavailable Unavail able Jeremy Perez Unavailable Unavailable Procedures Procedure Date SV Poly Carb Sph Monessen To +/- 4 - 010 Vision Svcs Frames Purchases Tint Photochromatic, Polycarb 0 Eye Exam, New Patient Refraction Advance Directives Directive Yes / No Effective Date File Name No Information Encounters Encounter Description Practice Location Reason(s) For Visit Diagnoses Date Provider Providers Copied on Encounter [facility], [address] [place] [address] [address], [place], [place], [id number], [place] tel:[phone] [facility] No Information 3-201 0 [facility] . [address] [facility], [facility] [address], [place], [id number], [place]. tel:[phone] Referring Provider: Jeb De León, [address] [place] [address] [address], [place], [address]. tel:[phone] sulting Provider: Jeremy Perez, [address] [place], [place] [address]ate [facility], [place], [address]. tel:[phone] [facility], [address] [place] [address] [address], [place], [place], [id number], [place] tel:[phone] [facility] No Information 6-[address] TRACEY Russ. [facility] , [address], [place], [address], [place]. tel:[phone] Family History Family Member Type Diagnosis Age At Onset No Information Payers Payer name Insurance type Covered republican ID Samir perez(s) VSP CI [id number] Social History Type Description Quantity Date Captured Comments Sex Female Smoking Status No Information Chief Complaint And Reason For Visit No Information Reason For Referral Reason For Referral No Information History Of Present Illness Encounter Date Complaint History Of Prese nt Illness No Information Functional Status Date Functional Assessmen t No Information Instructions Date Instruction Additional Infor mation No Information Assessments Type Assessment Date No Information Patient Care Teams Name Effective Dates (start - stop) Status Members No Information
--- OUTSIDE RECORDS SUMMARY | 2024-12-15 01:27 | XMS_ITS | Referral Summary ---
Author Organization [facility] [address] [facility] ost Address [address] [place] [address] Care Team Providers Care Rn Traveling Name Role Phone Nahun Brown Primary Care Provider [phone] Carlos Powell MD Unavailable Encounters Date Type Department Care Team Description 11/05/2024 11:00 AM CDT Office Visit [facility] Family Medicine 200 [facility] [address] [place] [address] Nahun Brown PA Neck pain (Primary Dx) from Last 3 Months Allergies No known active allergies Medications estradioL [...] (06/05/2022): Added automatically from request for surgery [id number] Disorder of soft tissue 06/05/202204/20 Overview (06/05/2022): Added automatically from request for surgery [id number] Right inguinal pain 10/28/2018 09/20/2022 05/01/20 23 Stress incontinence of urine 07/16/2018 05/01/2023 Overview (01/23/2023): Stress incontinence (female) (male);Recorded Elsewhere: No Location: [facility] Source: EHR Chronic: N Practice ID: [...] ovarian cyst, unspecified side;Recorded Elsewhere: No Location: [facility] Source: EHR Chronic: N Practice ID: [id number] Billable Time: 04:30:00 PM Pelvic and perineal pain 06/17/201704/2023 Overview (01/23/2023): Pelvic pain;Recorded Elsewhere: No Location: [facility] Source: EHR Chronic: N Practice ID: 0001 Billable Time: 04:30:00 PM Immunizations Immunization Administration Dates Next Due Influenza, Unspecified 11/05/2024(Deferr ed: Patient Refused),07/16/2024(Deferred: Patient Refused),05/01/2024(Deferred: Patient Refused),04/02/2024(Deferred: Patient Refused),07/20/2023(Deferred: Patient Refused),07/20/2023(Deferred: Patient Refused),05/01/2023(Deferred: Patient Refused),04/23/2023(Deferred: Patient Refused),04/23/2023(Deferred: Patient Refused),02/20/2023(Deferred: Patient Refused),01/23/2023(Deferred: Patient Refused),12/27/2022(Deferred: Patient Refused),07/21/2022(Deferred: Patient Refused),07/21/2022(Deferred: Patient Refused),07/21/2022(Deferred: Patient Refused) Td, adsorbed 11/27/2016 Tdap 11/27/2016 Social History Tobacco Use Types Packs/Day Years [...] on file Sexual Orientation Not on file Last Filed Vital Signs Vital Sign Reading Time Taken Comments Blood Pressure 120/76 11/05/2024 10:56 AM CDT Pulse 81 11/05/2024 10:56 AM CDT Temperature 36.6 C (97.9 F) 05/01/2023 8: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 Respiratory Rate 18 11/05/2024 10:56 AM CDT Oxygen Saturation 98% 11/05/2024 10:56 AM CDT Inhaled Oxygen Concentration - - Weight 96.2 kg (212 lb) 11/05/2024 10:56 AM CDT Height 172.7 cm (5' 8) 11/05/2024 10:56 AM CDT Body Mass Index 32.23 11/05/2024 10:56 AM CDT Plan of Treatment Not on file Procedures Procedure Name Priority Date/Time Associated Diagnosis Comments SCREENING MAMMOGRAM BILATERAL W JORDAN Schedule Routine, Read Routine (OP Routine) 01/04/2024 8:31 AM CDT Screening mammogram, encounter for HEPATITIS PANEL, ACUTE Routine 05/01/2023 8:58 AM SENIOR SOFTWARE QUALITY ENGINEER Rheumatoid factor positive HM PAP SMEAR WITH [...] age 40, based on guidelines of the [place] [employer] (ACR Practice Parameter for the Performance of Screening and Diagnostic Mammography) and [place] [employer]. For women [...] Hepatitis panel, acute Blood (05/01/2023 8:58 AM SENIOR SOFTWARE QUALITY ENGINEER) Hep A IgM Nonreactive Nonreactive [facility] Comment: Interpretive Data: If Hep A IgM Ab is reported as Equivocal, a new sample should be drawn in two weeks for testing. Current interpretive data was last revised on 19. Testing performed by: [facility], [facility] [facility], [place]., [address] Hep B core IgM Nonreactive Nonreactive [facility] Comment: Interpretive Data If HepB Core IgM Ab is reported as Equivocal, a new sample should be drawn in two weeks for testing. Current interpretive data was last revised on 19. Testing performed by: [facility], [address] [place] [address]., [address] Hep C Ab Nonreactive Nonreactive [facility] Comment: Interpretive Data Nonreactive: Antibodies to HCV [...] last revised on 2019. Testing performed by: [facility], [address] [place] [address]., [address] HepBsAg Nonreactive Nonreactive [facility] Comment:Testing performed by : [facility], [address] [place] [address]., [id number] Blood 05/01/2023 8:58 AM SENIOR SOFTWARE QUALITY ENGINEER 05/01/2023 10:11 AM SENIOR SOFTWARE QUALITY ENGINEER Valeria Alcaraz NP LAB MICROBIOLOGY - GENE [facility] ORDERABLES Final Result Performing Organization Address City/State/[facility] [place] Phone Number [facility] [address] [facility] Department [place] [address] * PAP SMEAR WITH HPV (04/03/2022) Historical Provider HEALTH MAINTENANCE Final Result * HM COLONOSCOPY (10/01/2018) Historical Provider HEALTH MAINTENANCE Final Result from Last 3 Months or Most Recently Relevant to Health Maintenance Insurance [facility] BLUE [employer] [facility]UE [facility] Care Teams Rn Traveling Relationship Specialty Start Date End Date Nahun Brown PA [address] [address] PCP - General Family Medicine 10/25/21 Carlos Powell MD [address] [place] [address] Referring Physician Obstetrics and Gynecology 10/27/21
--- OUTSIDE RECORDS SUMMARY | 2024-12-15 01:27 | XMS_ITS | Clinical Summary ---
Author Organization [facility] Address [address] [place] [address] Care Team Providers Care Single Ending Machine Operator Name Role Phone Unavailable Primary Care Provider Unavailabl e Social History Tobacco Use Types Packs/Day Years Used Date Smoking Tobacco: Never Assessed Comments Unknown Sex and Gender Information Value Date Recorded Sex Assigned at Not on file Legal Sex Female 7:36 PM CDT Gender Identity Not on file Sexual Orientation Not on file Plan of Treatment Health Maintenance Due Date Last Done Comments Cervical Cancer Screening Pa p Smear (Age 30 to 64) Every 3 Years 1973 Colorectal Cancer Screening Colonoscopy (10 Years) 1973 Annual Physical 1976 Hepatitis C 1991 DTaP, Tdap and Td Vaccines ( 1 - Tdap) 1992 Hepatitis B Vaccines (1 of 3 - 19+ 3-dose series) 1992 Cervical Cancer Screening Pa p with HPV Testing (Age 30 to 64) Every 5 Years 2003 Cervical Cancer Screening with HPV 2003 Mammogram Screening 2013 Pneumococcal Vaccine: 50+ Ye ars (1 of 1 - PCV) 2023 Zoster Vaccines (1 of 2) 2023 COVID-19 Vaccine (2023-2 5 season) 2024 Meningococcal B Vaccine Aged Out No l onger eligible based on patient's age to complete this topic Meningococcal Vaccine Aged Out No sangeetha olivia eligible based on patient's age to complete this topic RSV Immunizations Under 20 Months Aged Out No longer eligible based on patient's age to complete this topic
--- NOTE | 2024-12-15 06:42 | P.HP_ITS ---
H&P: HPI History of Present Illness Date/Time: 12/15/24 06:42 Chief Complaint: Patient has chronic hip pain left. She has tried medicine therapy cortisone multiple injections anti-inflammatory medication physical therapy all without significant relief. Pain is present every day and she is out of nonsurgical options. She would like to consider surgical debridement. Review of Systems Musculoskeletal: Musculoskeletal: Reports arthralgias, Reports joint swelling and Reports stiffness Neurologic: Reports abnormal gait [facility] Past Medical History Medical History Greater trochanteric bursitis of both hips Lumbar spondylosis Hernia Gallbladder abscess Obesity Anxiety Hx of migraines Surgical History Surgical History History of hernia repair History of cholecystectomy H/O neck surgery H/O: hysterectomy H/O wrist surgery Family History Family History Father Family history of hypercholesterolemia Hypertension Heart disease Mother Family history of migraine headaches Hypertension Family history of development disorder Depression Sibling Asthma Hypertension Grandparent Alcoholism Diabetes mellitus Heart disease Other Cerebrovascular accident Family history of malignant neoplasm of breast Social History Social History Smoking status: Never smoker Alcohol intake: never Substance use: never Substance use type: does not use Do You Feel Safe in your Home?: Yes Lack of Transportation: No Lack of Food: Never True Current Housing: I Have Housing Concerned About Future Housing: No Difficulty Paying Gas/Electric Bills: No Difficulty Paying for Meds: No Currently Unemployed: No Education: High School Diploma/GED Difficulty w/ Childcare or Family Care: No Living arrangements: with family Occupation/Education: occupation 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 Spiritual care concerns: No Meds Home Medications and Allergies Home Medications ?Medication ?Instructions ?Recorded ?Confirmed ?Type escitalopram oxalate 10 mg tablet 10 mg PO DAILY 01/04/22 12/09/24 History trazodone 50 mg tablet 50 mg PO QHS PRN Insomnia 01/04/22 12/09/24 History estradiol 2 mg tablet 2 mg PO DAILY 02/01/22 12/09/24 History lorazepam 0.5 mg tablet 0.5 mg PO BID PRN Anxiety 02/01/22 12/09/24 History Allergies Allergy/AdvReac Type Severity Reaction Status Date / Time amoxicillin Allergy Mild Rash Verified 12/02/24 11:20 Exam Narrative: On exam she is tender over the trochanteric region left hip. She has good hip motion. Neurologically she is intact. She has pain to palpation manipulation. She walks with an antalgic gait because of the pain. Eyes: General: appearance normal, both eyes and all related structures Neck: Neck: supple Resp: Effort & Inspection: normal respiratory effort Cardio: Rate: regular rate Rhythm: regular rhythm Radiology Reports: Comments: [place] [address] Magnetic Resonance Report Signed Patient: Tamika Cage MRI of the left hip Clinical history: Trochanteric bursitis Technique: Coronal T1-weighted, T2-weighted, and proton-density fat-sat images, and axial T1-weighted and proton-density fat-sat images were acquired through the pelvis. Coronal T2-weighted images and coronal, axial, and sagittal proton- density fat-sat images were acquired through the left hip. Findings: There is no fracture or avascular necrosis of either hip. Bone marrow signals the proximal femora and pelvic bones are unremarkable. There is moderate chondromalacia diffusely involving both hip joints, mild bilateral joint space narrowing. No significant joint effusion. No left acetabular labral tear. Visualized musculature about the pelvis and left hip is unremarkable. Visualized tendons are intact. No soft tissue mass or fluid collection. No distinct bursitis evident. IMPRESSION: Moderate degenerative change of both hip joints, as detailed above. No acute abnormality seen. Reviewed, dictated and finalized at location . Hip/Pelvis X-Ray 05/20/24 Hip MRI 11/29/24 Knee X-Ray 10/30/24 Orthopedics Result Report 10/31/24 Lumbar Spine X-Ray 09/08/22 Assessment and Plan Assessment and plan (1) Trochanteric bursitis of left hip: Code(s): M70.62 - Trochanteric bursitis, left hip Status: Acute Assessment and Plan: Patient has hip pain left. She does have some degenerative change most his trochanteric. She has failed conservative treatment would like to consider surgical debridement. I told her that there is no 100% guarantee with this operation she understands and agrees. I discussed the risks, benefits, limitations, and alternatives the patient in detail. Will proceed with debridement of the trochanteric bursa. As I do not think she is ready for hip replacement surgery.
--- NOTE | 2024-12-15 06:46 | WPDHPUPDATE1 ---
History and Physical Update Update Date/Time: 12/15/24 06:46 History and Physical has been reviewed, including an updated exam of the patient. There are NO changes in the patient's condition. Risks, benefits, and alternatives have been discussed and questions answered. Patient agrees to proceed with procedure.
[2024-12-15] MEDS: ACETAMINOPHEN 500 MG TABLET 1000 MG PO (08:30)
[2024-12-15] MEDS: KETOROLAC 15 MG/ML VIAL (*BKC) IV PUSH (08:30)
--- NOTE | 2024-12-15 09:05 | WPDANESEPPF ---
Anes - Initial Pre Proc Eval Procedure: Operation Date: 12/15/24 09:30 Proposed Procedures p Debridement of Left Trochanteric Bursa and Iliotibial Band Tensor Fascia Bonnie - Semaj Rivas MD Date/Time: 12/15/24 09:05 Surgeon: Semaj Rivas MD Pre Op Diagnosis: Left trochanteric bursitis Patient Data Age: 49 Gender: F Height: 1.73 m Weight: 93.5 kg Last Vital Signs Temp 36.4 C 12/15/24 08:29 Pulse 84 12/15/24 08:29 Resp 16 12/15/24 08:29 BP 150/90 H 12/15/24 08:29 Pulse Ox 100 12/15/24 08:29 O2 Del Method Room Air 12/15/24 08:29 Allergies Allergy/AdvReac Type Severity Reaction Status Date / Time amoxicillin Allergy Mild Rash Verified 12/15/24 08:25 Home Medications ?Medication ?Instructions ?Recorded ?Confirmed ?Type escitalopram oxalate 10 mg tablet 10 mg PO DAILY 01/04/22 12/09/24 History trazodone 50 mg tablet 50 mg PO QHS PRN Insomnia 01/04/22 12/09/24 History estradiol 2 mg tablet 2 mg PO DAILY 02/01/22 12/09/24 History lorazepam 0.5 mg tablet 0.5 mg PO BID PRN Anxiety 02/01/22 12/09/24 History Patient hx anesthesia problems: none Family hx anesthesia problems: none Results Review: All pre-operative results and documents have been reviewed as part of the pre-operative evaluation. [facility] Past Medical History Medical History Greater trochanteric bursitis of both hips Lumbar spondylosis Hernia Gallbladder abscess Obesity Anxiety Hx of migraines Surgical History Surgical History History of hernia repair History of cholecystectomy H/O neck surgery H/O: hysterectomy H/O wrist surgery Family History Family History Father Family history of hypercholesterolemia Hypertension Heart disease Mother Family history of migraine headaches Hypertension Family history of development disorder Depression Sibling Asthma Hypertension Grandparent Alcoholism Diabetes mellitus Heart disease Other Cerebrovascular accident Family history of malignant neoplasm of breast Social History Social History Smoking status: Never smoker Alcohol intake: never Substance use: never Substance use type: does not use Do You Feel Safe in your Home?: Yes Lack of Transportation: No Lack of Food: Never True Current Housing: I Have Housing Concerned About Future Housing: No Difficulty Paying Gas/Electric Bills: No Difficulty Paying for Meds: No Currently Unemployed: No Education: High School Diploma/GED Difficulty w/ Childcare or Family Care: No Living arrangements: with family Occupation/Education: occupation 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 Informed Consent: The patient's anesthetic plan and its attendant risks and benefits were discussed with the patient/family/POA. Questions were solicited and answers provided to the satisfaction of the patient/family/POA.
[2024-12-15] MEDS: ceFAZolin 2 GM in SODIUM CHLORIDE 0.9% IV 50 ML 100 ML IVPB (09:22)
--- NOTE | 2024-12-15 10:05 | W.PM.PROC2 ---
Procedure Note - Detailed Date of Procedure 12/15/24 Pre-op Diagnosis Left trochanteric bursitis Post-op Diagnosis Same Procedure Performed Debridement left trochanteric bursa and release. Surgeon Semaj Rivas MD Anesthesia General Description of Procedure Patient brought to operating room #7. A general anesthetic was administered. She was placed with the left hip up. A longitudinal incision made over the trochanter. This unfortunately went into her tattoo. I tried to follow but contour the tattoo. Dissection carried down to the fascia maintaining a good hemostasis. The fascia found and released. It was quite thickened. Bursectomy was performed. And then the fascia gently closed making sure there was no tightness or significant rubbing of the trochanteric area. The wound irrigated and closed with the 2-0 Vicryl and 3-0 Stratafix and skin glue. A sterile dressing was applied. The patient tolerated procedure well. Estimated Blood Loss 50 Complications No immediate complications Condition Stable Disposition PACU [facility] Billing Surgery - Charge Forward: Surgery Billing ([id number] Troch Bursitis Debride)
[2024-12-15] MEDS: LACTATED RINGERS 1,000 ML 30 ML IV CONT (10:28)
[2024-12-15] MEDS: ONDANSETRON INJ 4 MG/2 ML VIAL IV PUSH (11:45)
== END 2024-12-15 11:58 | disposition home or self-care (01) ==
PROVIDERS: Visit Provider Orthopaedic Surgery
PROC: (CPT 27062; principal; 2024-12-15 09:30)
DX: M70.62 Trochanteric bursitis, left hip (principal)
CPT/HCPCS: 27062; J0690; A9270; J1596; J1885; J2003; J2250; J2405; J2704; J2710; J3010; J7120

== ENCOUNTER 2025-04-21 11:46 | Observation (INO) | payer OTHER, BC, SELFPAY ==
[2025-04-21] VITALS (15 sets, daily range): BP systolic 116–171; BP diastolic 60–106; PULSE 69–89; RESP 11–20; TEMP 36.3–36.7; O2SAT 97–100; BMI 31.1
--- NOTE | ~2025-04-21 | NM_ITS ---
NM stress w perf spect multi Procedure: The patient was stressed using Modified Javier protocol. Prior to the end of exercise 11 mCi Tc 99m IV administered. Rest imaging performed following administration of 33 mCi Tc 99m IV. Images were reformatted into short axis, horizontal and vertical long axis sections for visual and quantitative analysis. Indication: Chest pain Comparison: None Findings: Computer assisted qualitative and quantitative analysis of the immediate and delayed images revealed normal left ventricular perfusion without evidence of fixed or reversible perfusion abnormality to suggest ischemia or infarction. Normal left ventricular cavity size, wall motion and ejection fraction. Left ventricular ejection fraction measures 63%. Impression: 1: No scintigraphic evidence of resting or stress induced perfusion abnormality. 2: Normal left ventricle ejection fraction measuring 63%. Reviewed, dictated and finalized at location I. TS DIRECTOR Impression: 1: No scintigraphic evidence of resting or stress induced perfusion abnormality . 2: Normal left ventricle ejection fraction measuring 63%.
--- NOTE | ~2025-04-21 | XR_ITS ---
Examination: XR chest 2V Clinical History: PT STATES TINGLING TO CHEST RADIATING TO LEFT ARM Comparison: None Technique: PA and Lateral Findings: Cardiomediastinal silhouette normal size and configuration. Lungs clear. No acute bony abnormality. Cholecystectomy clips. IMPRESSION: 1. No acute cardiopulmonary findings. Reviewed, dictated and finalized at location R. LIFE PROTECTOR
--- NOTE | 2025-04-21 11:58 | ECG_ITS ---
Test Date: 2025-04-21 12:01:15 Measurements Intervals Arabi Rate: 80 P: 62 TN: 185 QRS: 13 QRSD: 80 T: 9 QT: 357 QTc: 412 Interpretive Statements SINUS RHYTHM LOW QRS VOLTAGE IN PRECORDIAL LEADS BORDERLINE T WAVE ABNORMALITY- ANT/INF LEADS BASELINE ARTIFACT- I, II, III, AVR, AVL, AVF BORDERLINE ECG No previous ECG available for comparison Electronically Signed On 04-21-2025 12:47:12 [employer]PER[employer]OR PROCESS TESTING by Agustin Cross D.O.
--- NOTE | 2025-04-21 12:03 | ED_ITS ---
HPI - Chest Pain General Chief Complaint: Chest Pain Stated Complaint: chest tingling since this morning Time Seen by Provider: 04/21/25 12:00 Source: patient Mode of arrival: ambulatory Limitations: no limitations History of Present Illness HPI narrative: Patient presents with a pocket of a chest tingling which she describes as a pressure that started this morning while she was seated at work but otherwise not engaging in particularly vigorous exercise. She notes that it radiates into her left arm and left jaw. This sensation is intermittent that her arm feels heavy. She denies any shortness of breath, nausea, or vomiting. She states that she has chronic left greater than right lower extremity edema which her PCP Dr Aldridge is aware of and for which she wears compression stockings. She says this has never happened before. Denies any underlying respiratory or cardiac issues. She saw gang worker years ago as part of on workup for anxiety which she had a stress test but this was approximately 6 years ago and does not follow regularly with 1 since. Cardiac risk factors HTN: No HLD: Yes, mild per patient DM: No Obese: Yes Smoker: No Personal history DE/TIA/CVA: No Fam Hx DE in first degree relative <65yo: Yes Related Data Home Medications ?Medication ?Instructions ?Recorded ?Confirmed ?Last Taken ?Type alprazolam 0.25 mg tablet (Xanax) 0.25 mg PO DAILY PRN anxiety 04/21/25 04/21/25 03/31/25 18:00 History 0.25 mg Allergies Allergy/AdvReac Type Severity Reaction Status Date / Time amoxicillin Allergy Mild Rash Verified 04/21/25 16:43 [facility] Past Medical History Medical History (Updated 04/21/25 @ 16:46 by Tanya Sanchez, WAREHOUSE CLERK) High cholesterol Greater trochanteric bursitis of both hips Lumbar spondylosis Hernia Gallbladder abscess Obesity Anxiety Hx of migraines Surgical History Surgical History History of hernia repair History of cholecystectomy H/O neck surgery H/O: hysterectomy H/O wrist surgery Family History Family History Father , massive DE at 62yo Family history of hypercholesterolemia Hypertension Heart disease Acute myocardial infarction, Onset Age: 62 Mother Family history of migraine headaches Hypertension Family history of development disorder Depression Sibling Asthma Hypertension Grandparent Alcoholism Diabetes mellitus Heart disease Acute myocardial infarction >65yo Other Cerebrovascular accident Family history of malignant neoplasm of breast Social History Social History Smoking status: Never smoker Alcohol intake: never Substance use: never Substance use type: does not use Lack of Transportation: No Lack of Food: Never True Current Housing: I Have Housing Concerned About Future Housing: No Difficulty Paying Gas/Electric Bills: No Difficulty Paying for Meds: No Currently Unemployed: No Education: High School Diploma/GED Difficulty w/ Childcare or Family Care: No Living arrangements: with family Occupation/Education: occupation 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 HEAD: Normocephalic, atraumatic. EYES: Non injected, non icteric ENT: Nares clear, no rhinorrhea or epistaxis. Gross auditory acuity intact. NECK: Supple. No meningismus. CHEST: Speaking in full sentences. No respiratory distress. HEART: Regular rate and rhythm. . ABDOMEN: Soft, nondistended. No rigidity or guarding. Not peritoneal EXTREMITIES: Normal range of motion. No lower extremity edema on my exam. SKIN: Warm, dry, no rash. NEURO: No focal deficits. Alert and oriented. Answering questions. Following commands. Normal speech without aphasia or dysarthria. PSYCH: Normal mood and affect. Course Vital Signs Vital signs: Vital Signs Temperature 97.4 F L 04/21/25 11:58 Pulse Rate 81 04/21/25 11:58 Respiratory Rate 18 04/21/25 11:58 Blood Pressure 171/106 H 04/21/25 11:58 Pulse Oximetry 100 04/21/25 11:58 Oxygen Delivery Room Air 04/21/25 11:58 Temperature 98.1 F 04/22/25 08:00 Pulse Rate 87 04/22/25 10:00 Respiratory Rate 18 04/22/25 08:00 Blood Pressure 128/76 04/22/25 08:00 Pulse Oximetry 99 04/22/25 08:00 Oxygen Delivery Room Air 04/21/25 23:30 MDM MDM Narrative Medical decision making narrative: Patient presents with chest tingling /pressure that started this morning. In the emergency department she is afebrile with vital signs notable for hypertension. HEART SCORE History 2 highly suspicious 1 moderately suspicious 0 slightly suspicious History score [address] depression/elevation not due to LBBB, LVH, or digoxin [address] depression but LBBB, LVH, nonspecific repolarization changes 0 normal ECG score 0 vs 1 Age 2 >/= 65 1 45-64 0 <45 Age score 1 Risk factors (HTN, hypercholesterolemia, DM, obesity with BMI >30, current smoker or cessation </=3mo), positive fam hx with parent or sibling with CVD before age 65, atherosclerotic disease (prior DE, PCI/CABG, CVA/TIA, or peripheral arterial disease) 2 >/= 3 risk factors or history of atherosclerotic dz 1 - 1-2 risk factors 0 no known risk factors Risk factor score 2 Initial Troponin 2 >3 times normal limit 1 1-3 times normal limit 0 less than or equal to normal limit Troponin score 0 Total HEART Score 4 or 5. CBC with mild abnormalities on the differential but otherwise without anemia thrombocytopenia or leukocytosis. Chemistry unremarkable. D-dimer within normal limits. Repeat troponin within normal limits. Discussed with patient; shared decision making performed and she would be amenable to staying for further work up given her risk factors and the fact that she does not have an established relationship with a gang worker and it would be difficult to coordinate this in the outpatient setting in an appropriate time frame, especially given the upcoming holidays. I concur. Patient discussed with aegis console operator track hospitalist RIGOBERTO Martínez who accepts admission. Will be to IMU based on protocol. Her chest pain had not recurred and she has not required NTG although a PRN dose had been ordered. Differential Diagnosis Differential Diagnosis: ACS (STEMI, NSTEMI, unstable/stable angina), PE, anxiety, electrolyte abnormalities Lab Data MDM Lab Attestation statement: I personally reviewed the patient's lab results. 04/22/25 03:59 04/22/25 03:59 Labs: Lab Results 04/21/25 04/21/25 Range/Units 12:08 14:40 WBC 6.2 (4.5-10.0) K/mm3 RBC 4.39 (4.2-5.4) M/mm3 Hgb 12.8 (12.0-15.0) g/dL Hct 38.2 (37.0-47.0) % MCV 87.0 (80-100) fl MCH 29.2 (26-34) pg MCHC 33.5 (32-36) g/dl RDW 13.2 (11.5-14.5) % Plt Count 295 (150-375) k/mm3 MPV 10.7 H (7.4-10.4) fl Immature Gran % (Auto) 0.3 (0-0.5) % Neut % (Auto) 55.8 (45.5-73.1) % Lymph % (Auto) 35.2 (18.3-44.2) % [place] % (Auto) 7.2 (2.6-8.5) % Eos % (Auto) 1.0 (0-4.4) % Baso % (Auto) 0.5 (0.2-1.2) % Lymph # (Auto) 2.19 (0.9-3.2) K/mm3 [place] # (Auto) 0.5 (0.1-0.6) K/mm3 Eos # (Auto) 0.1 (0-0.3) K/mm3 Baso # (Auto) 0.0 (0.0-0.1) K/mm3 Abs Immat Gran (auto) 0.02 (0.00-0.031) K/mm3 Absolute Neuts (auto) 3.5 (1.3-6.7) K/mm3 Absolute Nucleated RBC 0.000 (0.0-0.012) K/mm3 Nucleated RBC % 0.0 (0.0-0.2) % PT 13.9 (11.1-14.7) Seconds INR 1.1 APTT 30.6 (22.3-36.8) Seconds D-Dimer 0.44 (<0.48) ug/mL Sodium 138 (137-145) mmol/L Potassium 3.8 (3.4-5.0) mmol/L Chloride 106 (98-107) mmol/L Carbon Dioxide 27 (22-30) mmol/L Anion Gap 5 (4-12) mmol/L BUN 14 (7-17) mg/dL Creatinine 0.78 (0.7-1.0) mg/dL Estim Creat Clear Calc 90 ml/min Estimated GFR > 60 (59 - ) Glucose 100 (65-110) mg/dL Calcium 9.3 (8.4-10.2) mg/dL Magnesium 2.1 (1.6-2.3) mg/dL Total Bilirubin 0.5 (0.2-1.3) mg/dL AST 28 (14-36) U/L ALT 17 (6-35) U/L Alkaline Phosphatase 114 (38-126) U/L Troponin I < 0.012 < 0.012 (0.000-0.034) ng/mL Total Protein 8.2 (6.3-8.2) g/dL Albumin 4.6 (3.5-5.1) g/dL Lipase 185 (23-300) U/L Imaging Data Radiologist's impression: ITS Impressions Chest X-Ray 04/21/25 12:29 IMPRESSION: 1. No acute cardiopulmonary findings. ECG Data EKG #1: Attestation: I personally reviewed and interpreted this ECG as follows: ECG completion date: 04/21/25 ECG completion time: 12:01 Interpretation: Normal sinus rhythm at a rate of 80 beats per minute. WA interval 185. QRS 80. QT/QTC 357/412. Good R-wave progression across the precordial leads. T-wave inversion in 3 but upright in contiguous inferior leads. Also T-wave nonspecific abnormality in V3, possibly due to lead placement. Otherwise upright in precordial leads V4 V5 V6. EKG #2: Attestation: I personally reviewed and interpreted this ECG as follows: ECG completion date: 04/21/25 ECG completion time: 14:43 Interpretation: Normal sinus rhythm at a rate of 71 beats per minute. WA interval 186. QRS 86. QT/QTC 383/418. Good R-wave progression across the precordial leads. T-wave inversion in 3 and mild flattening in AVF but otherwise upright in contiguous inferior lead 2. T-wave inversion in V3, suspected to lead placement. No T- wave inversions in V4 V5 V6. Discharge Plan Discharge Clinical Impression: Chest pain Qualifiers: Chest pain type: unspecified Qualified Code(s): R07.9 - Chest pain, unspecified Patient Disposition: Still a Patient Condition: Stable
[2025-04-21] MEDS: ASPIRIN 81 MG CHEWABLE TABLET 324 MG PO (12:14)
[2025-04-21 12:17] LABS: Hematocrit 38.2 % (37.0-47.0); Hemoglobin 12.8 g/dL (12.0-15.0); Immature Granulocyte Percent A 0.3 % (0-0.5); Lymphocytes Absolute Auto 2.19 K/mm3 (0.9-3.2); Mean Corpuscular HGB Conc 33.5 g/dl (32-36); Mean Corpuscular Hemoglobin 29.2 pg (26-34); Mean Corpuscular Volume 87.0 fl (80-100); Nucleated Red Blood Cells Absolute Auto 0.000 K/mm3 (0.0-0.012); Nucleated Red Blood Cells Perc 0.0 % (0.0-0.2); Platelet Count Result 295 k/mm3 (150-375); Red Blood Count 4.39 M/mm3 (4.2-5.4); White Blood Count 6.2 K/mm3 (4.5-10.0)
[2025-04-21 12:28] LABS: Alanine Aminotransferase 17 U/L (6-35); Albumin Level 4.6 g/dL (3.5-5.1); Alkaline Phosphatase 114 U/L (38-126); Anion Gap 5 mmol/L (4-12); Aspartate Amino Transferase 28 U/L (14-36); Bilirubin,Total 0.5 mg/dL (0.2-1.3); Blood Urea Nitrogen 14 mg/dL (7-17); Calcium 9.3 mg/dL (8.4-10.2); Carbon Dioxide 27 mmol/L (22-30); Chloride 106 mmol/L (98-107); Estimated CRCL calculation 90 ml/min; Estimated Glomerular Filt Rate > 60; Glucose 100 mg/dL (65-110); Lipase 185 U/L (23-300); Potassium 3.8 mmol/L (3.4-5.0); Sodium 138 mmol/L (137-145); Total Protein 8.2 g/dL (6.3-8.2)
[2025-04-21 12:32] LABS: INR 1.1; Prothrombin Time 13.9 Seconds (11.1-14.7)
[2025-04-21 12:33] LABS: Partial Thromboplastin Time 30.6 Seconds (22.3-36.8)
[2025-04-21 12:39] LABS: Troponin I < 0.012 ng/mL (0.000-0.034)
--- OUTSIDE RECORDS SUMMARY | 2025-04-21 12:45 | XMS_ITS | Clinical Summary ---
Author Organization [facility] Address [address] [place] [id number] Care Team Providers Care Crankshaft Grinder Name Role Phone Unavailable Primary Care Provider [...] Vaccines (1 of 2) 2023 COVID-19 Vaccine (2024-2 6 season) 2025 Influenza Adult (#1) 2025 Hepatitis A Vaccines Aged Out No long er eligible based on patient's age to complete this topic Meningococcal B Vaccine Aged Out No l onger eligible based on patient's age to complete this topic Meningococcal Vaccine Aged Out No sangeetha olivia eligible based on patient's age to complete this topic RSV Immunizations Under 20 Months Aged Out No longer eligible based on patient's age to complete this topic
--- OUTSIDE RECORDS SUMMARY | 2025-04-21 12:45 | XMS_ITS | Clinical Summary ---
Author Organization [facility] [address] Address [address] [place] [address] Care Team Providers Care Home Health Care Respiratory Therapist Name Role Phone Nahun Brown Primary Care Provider [phone] Carlos Powell MD Unavailable [phone] Allergies Active Allergy Reactions Criticality Noted Date Comments Amoxicillin Diarrhea,Headache,It mando,Rash,Stomach upset Medium 02/18/2025 Medications estradioL (ESTRACE) 2 mg tablet 1 tablet (2 mg total) bedtime 10/25/2021 Active meloxicam (MOBIC) 15 mg tabletIndication s:Bilateral shoulder pain, unspecified chronicity Take 1 tablet (15 mg total) by mouth daily 30 tablet 1 12/27/2023 Active ALPRAZolam (XANAX) 0.25 mg tablet TAKE 1 TABLET BY MOUTH ONCE DAILY NEEDED FOR ANXIETY 30 tablet 02/16/2025 Active rosuvastatin (CRESTOR) 10 mg tablet Take 1 tablet (10 mg total) by mouth daily 90 tablet 3 02/18/2025 Active Active Problems Problem Noted Date Diagnosed [...] (06/05/2022): Added automatically from request for surgery [id number] Disorder of soft tissue 06/05/202204/20 Overview (06/05/2022): Added automatically from request for surgery [id number] Right inguinal pain 10/28/2018 09/20/2022 05/01/20 23 Stress incontinence of urine 07/16/2018 05/01/2023 Overview (01/23/2023): Stress incontinence (female) (male);Recorded Elsewhere: No Location: [facility] Source: EHR Chronic: N Practice ID: [id number] Billable Time: 03:30:00 PM Pain 07/17/2017 05/01/2023 Overview (01/23/2023): Lower abdominal pain;Recorded Elsewhere: No Location: [facility] Source: EHR Chronic: N Practice ID: [id number] [...] ovarian cyst, unspecified side;Recorded Elsewhere: No Location: [facility] Source: EHR Chronic: N Practice ID: [id number] Billable Time: 04:30:00 PM Pelvic and perineal pain 06/17/201704/2023 Overview (01/23/2023): Pelvic pain;Recorded Elsewhere: No Location: [facility] Source: EHR Chronic: N Practice ID: [id number] Billable Time: 04:30:00 PM Encounters Date Type Department Care Team Description 02/19/2025 Results Follow-Up [facility] [address] [facility] [address] [place] [address] Medina Reilly NP [facility] [place] 02/18/2025 10:30 AM CDT Office Visit [facility] [address] [facility] [address] [place] [address] Nahun Brown PA Annual physical exam (Primary Dx); Encounter for screening mammogram for malignant neoplasm of breast; Mixed hyperlipidemia 02/13/2025 7:55 AM CDT Lab [facility] [address] [facility] [place], [place] [id number] Annual physical exam; Medication monitoring encounter from Last 3 Months Immunizations Immunization Administration Dates Next Due Influenza, Unspecified 02/18/2025(Deferr ed: Patient Refused),11/05/2024(Deferred: Patient Refused),07/16/2024(Deferred: Patient Refused),05/01/2024(Deferred: Patient Refused),04/02/2024(Deferred: Patient Refused),07/20/2023(Deferred: Patient Refused),07/20/2023(Deferred: Patient Refused),05/01/2023(Deferred: Patient Refused),04/23/2023(Deferred: Patient Refused),04/23/2023(Deferred: Patient Refused),02/20/2023(Deferred: Patient Refused),01/23/2023(Deferred: Patient Refused),12/27/2022(Deferred: Patient Refused),07/21/2022(Deferred: Patient Refused),07/21/2022(Deferred: Patient Refused),07/21/2022(Deferred: Patient Refused) Td, adsorbed 11/27/2016 Tdap 11/27/2016 Surgical History Surgery Date Site/Laterality Comments CHOLECYSTECTOMY 2001 HYSTERECTOMY 2019 CERVICAL FUSION CYST REMOVAL 06/21/2022 Right wrist SPINAL CORD DECOMPRESSION OTHER SURGICAL HISTORY Left Left hip bursa surgery November 2024 [facility] Medical History Medical History Date Comments Anxiety 07/2003 Vaginal delivery X3 Depression Hypothyroidism Arthritis Migraines [...] points, staff should administer the PHQ-9) 0 02/18/2025 Personal Safety Answer Date Recorded Getting School [...] Sign Reading Time Taken Comments Blood Pressure 118/80 02/18/2025 10:18 AM CDT Pulse 83 02/18/2025 10:18 AM CDT Temperature 36.6 C (97.9 F) 05/01/2023 8:09 AM CRYSTAL LAPPER Respiratory Rate 18 02/18/2025 10:18 AM CDT Oxygen Saturation 99% 02/18/2025 10:18 AM CDT Inhaled Oxygen Concentration - - Weight 94.8 kg (209 lb) 02/18/2025 10:18 AM CDT Height 172.7 cm (5' 8) 02/18/2025 10:18 AM CDT Body Mass Index 31.78 02/18/2025 10:18 AM CDT Plan of Treatment Health Maintenance Due Date Last Done Comments Hepatitis B Screening 1991 Zoster Vaccine (1 of 2) 2023 Breast Cancer Screening-Mammogram 01/06/2025 01/07/2024, 01/04/2024, 01/04/2024, Additional history exists Influenza Vaccine (#1) 2025 Depression Screening 02/18/2026 02/18/2025, 11/05/2024, 11/29/2023, Additional history exists Regular Well Visit/Exam 18-64 02/18/2026 02/18/2025, 02/18/2025, 01/01/2024, Additional history exists DTaP/Tdap/Td Vaccine (2 - Td or Tdap) 11/27/2026 11/27/2016, 11/27/2016 Colon Cancer Screening-Colonoscopy 10/01/2028 10/01/2018 Cervical Cancer Screening Discontinued 04/03/2022 Hepatitis C Screening Completed 05/01/2023 Pneumococcal vaccine <65 Aged Out No longer eligible based on patient's age to complete this topic Procedures Procedure Name Priority Date/Time Associated Diagnosis Comments URINE MISC TO MONET Routine 02/13/2025 8: 14 AM CDT EGFR Routine 02/13/2025 8:14 AM CDT Annual physical exam LIPID PANEL Routine 02/13/2025 8:14 AM CDT Annual physical exam COMPREHENSIVE METABOLIC PANEL Routine 02/13/2025 8:14 AM CDT Annual physical exam SCREENING MAMMOGRAM BILATERAL W RICHARD Schedule Routine, Read Routine (OP Routine) 01/04/2024 8:31 AM CDT Screening mammogram, encounter for HEPATITIS PANEL, ACUTE Routine 05/01/2023 8:58 AM CRYSTAL LAPPER Rheumatoid factor positive HM PAP SMEAR WITH HPV Routine 04/03/2022 HM COLONOSCOPY Routine 10/01/2018 from Last 3 Months or Most Recently Relevant to Health Maintenance Results * URINE MISC TO [place] (02/13/2025 8:14 AM CDT) Test name, chem ADMPU,Addic tion Medicine Profile with Reflex, [address] [place] ref Lab Misc See Footnote MARK STEVENS Comment: Test Result Flag Unit RefValue Addiction Med Profile,22,HRMS/IA, U List Patient's Current unknown Medications ADDITIONAL INFORMATION Accuracy and completeness of declared medications on reports solely dependent on information submitted by client. Creatinine, U 62.0 mg/dL Specific [place] 1.015 pH 5.7 Oxidants Negative -- REFERENCE VALUE -- Cutoff: 200 mg/L Comment Normal Barbiturates Negative ng/mL Cutoff: 200 Cocaine Negative ng/mL Cutoff: 150 This cocaine immunoassay targets benzoylecgonine the primary metabolite of cocaine. Tetrahydrocannabinol Negative ng/mL Cutoff: 50 This immunoassay targets delta-9 tetrahydrocannabinol carboxylic acid (THC-COOH), a metabolite of delta-9 tetrahydrocannabinol the main psychoactive ingredient of marijuana. ADDITIONAL INFORMATION This report is intended for use in clinical monitoring or management of patients. It is not intended for use in employment-related testing. Codeine Not Detected ng/mL Cutoff: 25 Tylenol 3 Cgryikt-7-wact- Not Detected ng/mL Cutoff: 100 glucuronide Metabolite of codeine Morphine Not Detected ng/mL Cutoff: 25 Avinza, Loulou, MS Contin; Also a minor metabolite (10%) of codeine and can be seen in low concentrations (<2,000 ng/mL) with poppy seed ingestion. Xqnhdakc-8-konw- Not Detected ng/mL Cutoff: 100 glucuronide Metabolite of morphine 6-monoacetylmorphine Not Detected ng/mL Cutoff: 25 Metabolite of heroin Hydrocodone Not Detected ng/mL Cutoff: 25 Lortab, [place], Vicodin; Also a very minor metabolite of codeine and impurity (<1%) of oxycodone. Norhydrocodone Not Detected ng/mL Cutoff: 25 Metabolite of hydrocodone Dihydrocodeine Not Detected ng/mL Cutoff: 25 Metabolite of hydrocodone Hydromorphone Not Detected ng/mL Cutoff: 25 Dilaudid, Exalgo; Also a metabolite of hydrocodone and a minor (<5%) metabolite of morphine. Hwcpypdgkenfc-0-irpo- Not Detected ng/mL Cutoff: 100 glucuronide Metabolite of hydromorphone Oxycodone Not Detected ng/mL Cutoff: 25 Endocet, Percocet, Oxycontin Noroxycodone Not Detected ng/mL Cutoff: 25 Metabolite of oxycodone Oxymorphone Not Detected ng/mL Cutoff: 25 Numorphan, Opana; Also a metabolite of oxycodone. Yrtplbklzuy-1-hkgt- Not Detected ng/mL Cutoff: 100 glucuronide Metabolite of oxymorphone and/or naloxone (nornaloxone) Noroxymorphone Not Detected ng/mL Cutoff: 25 Metabolite of oxymorphone and/or naloxone (nornaloxone) Fentanyl Not Detected ng/mL Cutoff: 2 Actiq, Duragesic, Fentora Norfentanyl Not Detected ng/mL Cutoff: 2 Metabolite of fentanyl Meperidine Not Detected ng/mL Cutoff: 25 Demerol Normeperidine Not Detected ng/mL Cutoff: 25 Metabolite of meperidine Naloxone Not Detected ng/mL Cutoff: 25 Narcan Yaagkqhq-0-elbp- Not Detected ng/mL Cutoff: 100 glucuronide Metabolite of naloxone Methadone Not Detected ng/mL Cutoff: 25 Dolophine EDDP Not Detected ng/mL Cutoff: 25 Metabolite of methadone Propoxyphene Not Detected ng/mL Cutoff: 25 Darvon, Darvocet Norpropoxyphene Not Detected ng/mL Cutoff: 25 Metabolite of propoxyphene Tramadol Not Detected ng/mL Cutoff: 25 Tradol, Ultram, Ultracet O-desmethyltramadol Not Detected ng/mL Cutoff: 25 Metabolite of tramadol Tapentadol Not Detected ng/mL Cutoff: 25 Nucynta N-desmethyltapentadol Not Detected ng/mL Cutoff: 50 Metabolite of tapentadol Tapentadol-beta- Not Detected ng/mL Cutoff: 100 glucuronide Metabolite of tapentadol Buprenorphine Not Detected ng/mL Cutoff: 5 Buprenex, Suboxone Norbuprenorphine Not Detected ng/mL Cutoff: 5 Metabolite of buprenorphine Norbuprenorphine Not Detected ng/mL Cutoff: 20 glucuronide Metabolite of buprenorphine Opioid Interpretation See Footnote No opioids were detected. The absence of expected drug(s) and/or drug metabolite(s) may indicate non-compliance, altered pharmacokinetics, inappropriate timing of specimen collection relative to drug administration, diluted/adulterated urine, or limitations of testing. ADDITIONAL INFORMATION This test was developed and its performance characteristics determined by [facility] in a manner consistent with CLIA requirements. This test has not been cleared or approved by the U.S. Food and Drug Administration. Alprazolam Not Detected ng/mL Cutoff: 10 Xanax Alpha-Hydroxyalprazolam Not Detected ng/mL Cutoff: 10 Metabolite of Alprazolam Alpha- Not Detected ng/mL Cutoff: 50 Hydroxyalprazolam Glucuronide Metabolite of Alprazolam Chlordiazepoxide Not Detected ng/mL Cutoff: 10 Librium Clobazam Not Detected ng/mL Cutoff: 10 Frisium, Onfi N-Desmethylclobazam Not Detected ng/mL Cutoff: 200 Metabolite of Clobazam Clonazepam Not Detected ng/mL Cutoff: 10 Klonopin, Rivotril 7-aminoclonazepam Not Detected ng/mL Cutoff: 10 Metabolite of Clonazepam Diazepam Not Detected ng/mL Cutoff: 10 Valium Nordiazepam Not Detected ng/mL Cutoff: 10 Metabolite of Chlordiazepoxide, Diazepam, or Prazepam. Flunitrazepam Not Detected ng/mL Cutoff: 10 Rohypnol 7-aminoflunitrazepam Not Detected ng/mL Cutoff: 10 Metabolite of Flunitrazepam Flurazepam Not Detected ng/mL Cutoff: 10 Dalmane 2-Hydroxy Ethyl Not Detected ng/mL Cutoff: 10 Flurazepam Metabolite of Flurazepam Lorazepam Not Detected ng/mL Cutoff: 10 Ativan Lorazepam Glucuronide Not Detected ng/mL Cutoff: 50 Metabolite of Lorazepam Midazolam Not Detected ng/mL Cutoff: 10 Versed Alpha-Hydroxy Midazolam Not Detected ng/mL Cutoff: 10 Metabolite of Midazolam Oxazepam Not Detected ng/mL Cutoff: 10 Serax; Also a metabolite of Chlordiazepoxide, Diazepam, or Temazepam. Oxazepam Glucuronide Not Detected ng/mL Cutoff: 50 Metabolite of Oxazepam Prazepam Not Detected ng/mL Cutoff: 10 Centrax Temazepam Not Detected ng/mL Cutoff: 10 Restoril; Also a metabolite of Diazepam. Temazepam Glucuronide Not Detected ng/mL Cutoff: 50 Metabolite of Temazepam Triazolam Not Detected ng/mL Cutoff: 10 Halcion Alpha-Hydroxy Triazolam Not Detected ng/mL Cutoff: 10 Metabolite of Triazolam Zolpidem Not Detected ng/mL Cutoff: 10 Ambien Zolpidem Phenyl-4- Not Detected ng/mL Cutoff: 10 Carboxylic acid Metabolite of Zolpidem Benzodiazepine See Footnote Interpretation No benzodiazepines were detected. The absence of expected drug(s) and/or drug metabolite(s) may indicate non-compliance, altered pharmacokinetics, inappropriate timing of specimen collection relative to drug administration, diluted/adulterated urine, or limitations of testing. ADDITIONAL INFORMATION This test was developed and its performance characteristics determined by [facility] in a manner consistent with CLIA requirements. This test has not been cleared or approved by the U.S. Food and Drug Administration. Methamphetamine Not Detected ng/mL Cutoff: 100 Desoxyn Amphetamine Not Detected ng/mL Cutoff: 100 Dyanavel XR, Adzenys ER, Adderall, Vyvanse; Also a metabolite of methamphetamine 3,4- Not Detected ng/mL Cutoff: 100 methylenedioxymethamphetamine (MDMA) 3,5-tmbsrikuyketnb-S- Not Detected ng/mL Cutoff: 100 ethylamphetamine (MDEA) 3,4- Not Detected ng/mL Cutoff: 100 methylenedioxyamphetamine (MDA) Also a metabolite of MDMA and/or MDEA Ephedrine Not Detected ng/mL Cutoff: 100 Pseudoephedrine Not Detected ng/mL Cutoff: 100 Sudafed Phentermine Not Detected ng/mL Cutoff: 100 Adipex-P, Lomaira, Qsymia Phencyclidine (PCP) Not Detected ng/mL Cutoff: 20 Methylphenidate Not Detected ng/mL Cutoff: 20 Ritalin, Concerta Ritalinic acid Not Detected ng/mL Cutoff: 100 Metabolite of methylphenidate Stimulant See Footnote Interpretation No stimulants were detected. The absence of expected drug(s) and/or drug metabolite(s) may indicate non-compliance, altered pharmacokinetics, inappropriate timing of specimen collection relative to drug administration, diluted/adulterated urine, or limitations of testing. ADDITIONAL INFORMATION This test was developed and its performance characteristics determined by [facility] in a manner consistent with CLIA requirements. This test has not been cleared or approved by the U.S. Food and Drug Administration. Ethyl Glucuronide Negative ng/mL Cutoff: 500 Screen, U ADDITIONAL INFORMATION This test was developed and its performance characteristics determined by [facility] in a manner consistent with CLIA requirements. This test has not been cleared or approved by the U.S. Food and Drug Administration. Nicotine <5.0 ng/mL <5.0 Cotinine <5.0 ng/mL <5.0 Nornicotine <2.0 ng/mL <2.0 Anabasine <2.0 ng/mL <2.0 ADDITIONAL INFORMATION This test was developed and its performance characteristics determined by [facility] in a manner consistent with CLIA requirements. This test has not been cleared or approved by the U.S. Food and Drug Administration. Test Performed by: [facility] [address] [place] [address] It Application Administrator: Avinash Martinez Ph.D.; CLIA# [id number] Urine 02/13/2025 8:14 AM CDT 02/13/2025 2:21 PM CDT us Alejandro Llanes MD LAB URINE ORDERABLE S Final Result Performing Organization Address [facility]/ZIP Co de Phone Number MARK [address] [place] [employer] [place] [address] [place] [facility] * eGFR (02/13/2025 8:14 AM CDT) eGFR >90 >=60 mL/min/1. 73 m2 Comment: Interpretive Data Reference Interval Normal >/= 90 mL/min/1.73m2 Mildly decreased* 60 - 89 mL/min/1.73m2 Mildly to moderately decreased 45 - 59 mL/min/1.73m2 Moderately to severely decreased 30 - 44 mL/min/1.73m2 Severely decreased 15 - 29 mL/min/1.73m2 Kidney Failure < 15 mL/min/1.73m2 *Relative to young adult level Estimated glomerular filtration rate is determined by the 2020 CKD-EPI equation recommended by the National Kidney Foundation (A Unifying Approach to GFR Estimation: Recommendations of the NKF-ASK Task Force on Reassessing the Inclusion of Race in Diagnosing Kidney Disease, JASN 2020). The CKD-EPI equation should not be used for patients with unstable renal function and has not been validated in children and those over 70. Current interpretive data was last reviewed 2021. Blood 02/13/2025 8:14 AM CDT 02/13/2025 12:20 PM CDT us Nahun DORSEY LAB BLOOD ORDERABLES Final Result Performing Organization Address City/[facility]/ZIP Co de Phone Number MARK [address] [employer] [place] [address] * (ABNORMAL) Lipid panel (02/13/2025 8:14 AM CDT) Cholesterol 202(H) 30 - 199 mg/dL Comment: Interpretive Data Ages < or = 19 years Acceptable: <170 mg/dL Borderline high: 170-199 mg/dL High: >or= 200 mg/dL Ages > or = 20 years Desirable: <200 mg/dL Borderline high: 200-239 mg/dL High: >or= 240 mg/dL Literature References: 1. Expert Panel on Integrated Guidelines for Cardiovascular Health and Risk Reduction in Children and Adolescents. Pediatrics 2011;128:S213 2. NCEP Expert Panel. Circulation 2004;110:227 Current Interpretive Data was last revised on 2018. Triglycerides 148 <=149 mg/dL MARK Comment: Interpretive Data Ages < or = 9 years Acceptable: <75 mg/dL Borderline high: 75-99 mg/dL High: >or= 100 mg/dL Ages 10 to 20 years Acceptable: <90 mg/dL Borderline high: 90-129 mg/dL High: >or= 130 mg/dL Ages > or = 20 years Desirable: <150 mg/dL Borderline high: 150-199 mg/dL High: 200-499 mg/dL Very high: >or= 499 mg/dL Literature References: 1. Expert Panel on Integrated Guidelines for Cardiovascular Health and Risk Reduction in Children and Adolescents. Pediatrics 2011;128:S213 2. NCEP Expert Panel. Circulation 2004;110:227 Current Interpretive Data was last revised on 2018. HDL 44 >=40 mg/dL MARK Comment: Interpretive Data Ages < or = 19 years Acceptable: >45 mg/dL Borderline low: 40-45 mg/dL Low: <40 mg/dL Ages > or = 20 years Desirable: >or= 60 mg/dL Low: <40 mg/dL Literature References: 1. Expert Panel on Integrated Guidelines for Cardiovascular Health and Risk Reduction in Children and Adolescents. Pediatrics 2011;128:S213 2. NCEP Expert Panel. Circulation 2004;110:227 Current Interpretive Data was last revised on 2018. LDL, calculated 131(H) <=129 mg/dL MARK Comment: Interpretive Data Ages < or = 19 years Acceptable: <110 mg/dL Borderline high: 110-129 mg/dL High: >or= 130 mg/dL Ages > or = 20 years Optimal: <100 mg/dL Near optimal: 100-129 mg/dL Borderline high: 130-159 mg/dL High: >160 mg/dL Calculated using the Augie LDL-C estimating equation. This equation was implemented on 2024. Prior to this date LDL-C was estimated using the Friedewald equation. Literature References: 1. Expert Panel on Integrated Guidelines for Cardiovascular Health and Risk Reduction in Children and Adolescents. Pediatrics 2011;128:S213 2. NCEP Expert Panel. Circulation 2004;110:227 3. Augie Hutchison et al. ELENA Cardiol. 2019September 18;5(5):540-548. doi: 10.1001/jamacardio.2020.0013 Current Interpretive Data was last revised on 2024. Non-HDL Cholesterol 158 mg/dL MARK TSEVENS Comment: Interpretive Data Ages < or = 19 years Acceptable: <120 mg/dL Borderline high: 120-144 mg/dL High: >145 mg/dL Ages > or = 20 years When triglycerides are >200 mg/dL, Non-HDL cholesterol is a secondary target of therapy with treatment goals that are 30 mg/dL greater than the LDL cholesterol target. Literature References: 1. Expert Panel on Integrated Guidelines for Cardiovascular Health and Risk Reduction in Children and Adolescents. Pediatrics 2011;128:S213 2. NCEP Expert Panel. Circulation 2004;110:227 Current Interpretive Data was last revised on 2018. Chol/HDL ratio 5 MARK STEVENS Blood 02/13/2025 8:14 AM CDT 02/13/2025 12:20 PM CDT us Nahun DORSEY LAB BLOOD ORDERABLES Final Result MARK STEVENS [address] [facility] Department [place] [address] * Comprehensive metabolic panel (02/13/2025 8:14 AM CDT) Sodium 139 135 - 145 mmol/L Potassium, pl 4.1 3.3 - 4.9 mmol/L MARK Chloride 103 97 - 110 mmol/L [facility] CO2 30 22 - 32 mmol/L [facility] Anion gap 6 2 - 15 mmol/L [facility] BUN 12 6 - 25 mg/dL [facility] Creatinine 0.76 0.60 - 1.10 mg/dL [facility] Glucose 99 70 - 199 mg/dL [facility] Comment: Interpretive Data Fasting glucose >/= 126 mg/dl is diagnostic for diabetes. Fasting is defined as no caloric intake for at least 8 hours. Fasting glucose between 100 mg/dl to 125 mg/dl is diagnostic of prediabetes. In a patient with classic symptoms of hyperglycemia or hyperglycemic crisis, a random glucose >/= 200 mg/dl is diagnostic for diabetes. In the absence of unequivocal hyperglycemia, results should be confirmed by repeat testing. The classification and Diagnosis of Diabetes Diabetes Care 2021; 46: S19-S40. Current interpretive data was last revised 2022. Calcium 9.9 8.5 - 10.3 mg/dL [facility] Bilirubin, total 0.4 0.1 - 1.2 mg/dL [facility] Protein, pl 7.6 6.5 - 8.5 g/dL [facility] Albumin 4.5 3.5 - 5.0 g/dL [facility] Alk phos 118 40 - 130 Units/L [facility] ALT 15 7 - 45 Units/L [facility] AST 24 10 - 45 Units/L [facility] Blood 02/13/2025 8:14 AM CDT 02/13/2025 12:20 PM CDT Nahun DORSEY LAB BLOOD ORDERABLES Final Result [facility] [address] [facility] Department [place] [address] * Screening Mammogram Bilateral W Richard (01/04/2024 8:31 AM CDT) Anatomical Region Laterality [...] age 40, based on guidelines of the [place] [employer] (ACR Practice Parameter for the Performance of Screening and Diagnostic Mammography) and [place] [employer]. For women with and elevated risk of breast cancer, please refer to the ACR Practice Parameter for specific screening recommendations. The patient will be entered into a reminder system with a target due date of 1 year for her next screening exam. Narrative 01/07/2024 10:53 AM CDT Screening Mammogram Bilateral W Richard: 01/04/24 The study was acquired using full [...] Hepatitis panel, acute Blood (05/01/2023 8:58 AM CRYSTAL LAPPER) Hep A IgM Nonreactive Nonreactive [facility] Comment: Interpretive Data: If Hep A IgM Ab is reported as Equivocal, a new sample should be drawn in two weeks for testing. Current interpretive data was last revised on 19. Testing performed by: [facility], [address] [place] [address]., [id number] Hep B core IgM Nonreactive Nonreactive [facility] Comment: Interpretive Data If HepB Core IgM Ab is reported as Equivocal, a new sample should be drawn in two weeks for testing. Current interpretive data was last revised on 19. Testing performed by: [facility], [address] [place] [address], [place]., [address] Hep C Ab Nonreactive Nonreactive [facility] Comment: Interpretive Data Nonreactive: Antibodies to HCV [...] last revised on 2019. Testing performed by: [facility], [address] [place] [address]., [id number] HepBsAg Nonreactive Nonreactive MARK GRANADOS Comment:Testing performed by : [facility], [address] [place] [address]., [id number] Blood 05/01/2023 8:58 AM CRYSTAL LAPPER 05/01/2023 10:11 AM CRYSTAL LAPPER Valeria Alcaraz NP LAB MICROBIOLOGY - GENE RAL ORDERABLES Final Result Performing Organization Address City/State/[facility] Phone Number MARK [place] [address] [facility]. [place] [address] * PAP SMEAR WITH HPV (04/03/2022) Historical Provider HEALTH MAINTENANCE Final Result * HM COLONOSCOPY (10/01/2018) Historical Provider HEALTH MAINTENANCE Final Result from Last 3 Months or Most Recently Relevant to Health Maintenance Insurance [facility] [place] [facility] [place] Care Teams Home Health Care Respiratory Therapist Relationship Specialty Start Date End Date Nahun Brown PA [address] [address] PCP - General Family Medicine 10/25/21 Carlos Powell MD [address] [place] [address] Referring Physician Obstetrics and Gynecology 10/27/21
--- OUTSIDE RECORDS SUMMARY | 2025-04-21 12:45 | XMS_ITS | Encounter Summary ---
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 Welder Name Role Phone Nahun Brown Primary Care Provider [phone] Carlos Powell MD Unavailable [phone] Encounter Details Date Type Department Care Team (Late st Contact Info) Description 02/19/2025 Results Follow-Up [facility] Family Medicine [address] [facility] [address] [place] [address] Medina Reilly NP [address] [facility] [address] [place] [address] URINE MISC TO ALSEA Social History Tobacco Use Types Packs/Day Years Used Date Smoking Tobacco: Never Smokeless Tobacco: Never AUDIT-C Answer Date Recorded Frequency of Alcohol [...] on file Sexual Orientation Not on file documented as of this encounter Miscellaneous Notes * Telephone Encounter - Nahun Brown PA - 02/26/2025 8:59 AM CDT I am not concerned. Continue to refill as needed. documented in this encounter Plan of Treatment Not on file documented as of this encounter Visit Diagnoses Not on filedocumented in this encounter Care Teams Pipefitter Welder Relationship Specialty Start Date End Date Nahun Brown PA [address] [address] PCP - General Family Medicine 10/25/21 Carlos Powell MD [address] [place] [address] Referring Physician Obstetrics and Gynecology 10/27/21 documented as of this encounter
--- OUTSIDE RECORDS SUMMARY | 2025-04-21 12:45 | XMS_ITS | Data Portability ---
Author Organization [facility] Address [address] [place] [address] Care Team Providers Care Benefits Officer Name Role Phone CALIXTO ADORNO Primary Care Provider Assessment Encounter Date Assessment Date Assessment LastModified [...] Vagifem 10 mcg vaginal tablet 2023 024 ARACELI [facility] #91719, [address] , [place], [place], [id number], 13:58:41 Bactrim DS 800 mg-160 mg tablet 2023 024 [facility] #01118, [address], [place], [place], [id number], 4 09:56:40 estradiol 2 mg tablet 2022 023 ARACELI [facility] #36116, [address], [place], [place], [id number], 3 11:18:23 testosteron e cypionate 100 mg/mL intramuscul ar oil 2021 022 [facility] #34339, [address], [place], [place], [id number], 3 10:47:11 Patient TargetsNo targets recorded. Patient [...] for Intra epith elial Lesio n or Maryolu sexton (NIL) . Elect lv mcduffie ren [...] elvie and/o r histo rical findi ngs, [facility] er inves tigat ion is recom alice d, as clini malcolm jain nted. Not Available [facility] (Lab) [address], [place], [address], 04/06/2022 16:31:46 05/25/19 24 05/25/2023 IMAGE GUIDE [...] as clini malcolm jain nted. Not Available [facility] (Lab) [address] [facility], [place], [address], 05/28/2023 17:58:35 07/03/19 23 07/03/2022 MAMMO , scree cyn, bilat eral No observ ation record ed. [facility] [address] [facility] [address], [place], [address], 07/10/2022 10:57:15 01/07/20 24 01/04/2024 MAMMO , scree cyn, bilat eral No observ ation record ed. [facility] [address] [place], [address], 01/09/2024 15:52:04 Result Notes None recorded. Problems Name Problem SNOMED Code Status Onset Date Resolution Date Notes Provider Name and Address Organization Details Recorded Time Cyst of ovary Completed 201709/24/2020 Unspecif ied ovarian cyst, unspecif ied side;Rec orded Elsewher e: No Locat ion: Day[facility] S ource: EHR Postdoctoral Scientist ascencion: N Practi ce ID: 0001 Jluis lable Time: 04:30:00 PM Latasha rothman [facility] 1 10:05:13 Pelvic and perineal pain 152259330 Completed 201709/24/2020 Pelvic pain;Rec orded Elsewher e: No [facility] S ource: [facility] ascencion: N Ynesti ce ID: 0001 Jluis lable Time: 04:30:00 PM Latasha rothman [facility] 10:05:26 Follicul ar cyst of right ovary [id number] 5587565 Completed 201709/24/2020 Follicul ar cyst of right ovary;Pr actice ID: [id number] Latasha rothman [facility] 10:05:19 Follicul ar cyst of left ovary 7260729726 8218723 Completed 201709/24/2020 Follicul ar cyst of left ovary;Pr actice ID: [id number] Latasha rothman, [facility] 10:05:17 Disease Completed 201709/24/2020 Oth cond assoc w female genital organs and menstrua l cycle;Pr actice ID: 0001 Latasha rothman [facility] 10:05:15 Procedur e on genitour inary system Completed 201709/24/2020 Encounte r for surgical aftercar e followin g surgery on the genitour inary system;R ecorded Elsewher e: No [facility] S ource: [facility] ascencion: N Ynesti ce ID: 0001 Jluis lable Time: 10:00:00 AM Latasha rothman [facility] 10:05:30 Postoper ative care Completed 201709/24/2020 Encounte r for surgical aftercar e followin g surgery on the genitour inary system;R ecorded Elsewher e: No [facility] EHR Postdoctoral Scientist ascencion: N Ynesti ce ID: 0001 Jluis lable Time: 10:00:00 AM Latasha rothman [facility] 1 10:05:28 Pain Completed 201709/24/2020 Lower abdomina l pain;Rec orded Elsewher e: No Locat ion: [facility] S ource: [facility] ascencion: N Ynesti ce ID: 0001 Jluis lable Time: 04:45:00 PM Latashacade Zhang [facility] 10:05:11 Genuine stress incontin ence 45904125 Completed 201809/24/2020 Stress incontin ence (female) (male);R ecorded Elsewher e: No Locat ion: [facility] S ource: EHR Postdoctoral Scientist ascencion: N Ynesti ce ID: 0001 Jluis lable Time: 03:30:00 PM Latashacade rothman [facility] 10:05:21 Menopaus e present [id number] Completed 201809/24/2020 Menopaus al and female climacte ebony states;R ecorded Elsewher e: No Locat ion: [facility] S ource: EHR Postdoctoral Scientist ascencion: Nicho Quickti ce ID: 0001 Jluis lable Time: 03:30:00 PM Latasha [facility] [address] 10:05:[address] Concept Completed 201809/24/2020 Encntr for extrusion former exam (general ) (routine ) w/o abn findings ;Recorde d Elsewher e: No Locat ion: [facility] ource: EHR Postdoctoral Scientist ascencion: Nicho Quickti ce ID: 0001 Jluis lable Time: 03:30:00 PM Latasha [facility] 1 10:05:32 Menopaus al symptom 62815230 Active 2020 Carlos Powell MD [address], [place], [address], [facility] 10:30:32 Persiste nt mastalgi a 324105792 Active 2020 Carlos Powell MD [address], [place], [address], [facility] 10:30:33 Problem Notes None recorded. Procedures Surgical History Date Name Laterality Status Provider Name and Address Organization Details Recorded Time 05/25/19 24 Date of Last Pap Smear completed [facility] 05/25/2023 10:08:15 07/03/19 23 Date of Last Mammogram completed [facility] 04/20/2023 10:48:13 06/21/19 20 procedure on wrist completed [facility] 09/24/2020 10:07:32 05/21/19 20 Date of Last Colonoscopy completed [facility] 04/01/2022 10:43:17 06/21/19 18 laparoscopic bilateral salpingo-oophorecto my completed [facility] 05/25/2023 09:43:35 Cholecystectomy completed [facility] 04/21/2020 15:10:18 Imaging Results None recorded. Procedure Notes None recorded. Medical Equipment None Reported. Allergies Allergen ID Allergen Name Allergen Category Reaction Reaction Severity Criticality Documentation Date Start Date Code Code System Note Provider Name and Address Organization Details Recorded Time 68043 amoxicill in medicatio n diarrhea headache itching rash Not available Not available Not available Not available high 04/10/20252024 723 RxNorm unrec ogniz ed react ion (text : Stoma ch upset , code: 40517 9005) (from exter nal sourc e) Not Available araceli - External Data Service - prod 03:10:46 Medications Name Sig Start Date Stop Date [...] Prescrib ed Elsewher e: Yes Loca tion: [facility] odify By: [email or web address] z Guillaume ter DateTime : 06/14/19 18 02:00:00 PM [...] Prescrib ed Elsewher e: Yes Loca tion: [facility] odify By: [email or web address] Dora r DateTime : 07/17/19 19 03:30:00 PM [...] active Not Available Not Available Not Available alprazola m 0.25 mg tablet TAKE 1 TABLET BY MOUTH ONCE DAILY NEEDED FOR ANXIETY active Not Available Not Available No t Available lorazepam 0.5 mg tablet TAKE 1 TABLET BY MOUTH TWICE DAILY NEEDED FOR EXTREME PANIC ATTACK active Not Available Not Available No t Available estradiol 1 mg tablet take 1 tablet daily 09/30 completed Increase d to 20mg per Dr. Powell Not Available Not Available Not Available dicyclomi ne 20 mg tablet 09/24 completed Not Available Not Available Not Available hydrocodo ne 7.5 mg-acetam inophen 325 mg tablet TAKE 1 TABLET BY MOUTH EVERY 4 HOURS NEEDED FOR PAIN active Not Available Not Available No t Available cephalexi n 500 mg capsule 09/24 [...] use twice a week @ HS for rodolfo garay. active Not Available Not Available No t Available Vitals Date Recorded Body height Body mass index (BMI) Body weight Systolic And Diastolic Provider Name and Address Organization Details Last Updated DateTime 05/25/2023 167.64 cm 36 kg/m2 433696.1 g 138/87 mm[Hg] Latasha [facility] 05/25/2023 09:40:24 Date Recorded Body height Body mass index (BMI) Body weight Systolic And Diastolic Provider Name and Address Organization Details Last Updated DateTime 06/08/2023 167.64 cm 36.3 kg/m2 267312.28 g 135/82 mm[Hg] Karyna Ro [facility] 06/08/2023 10:05:20 Date Recorded Body height Body mass index (BMI) Body weight Systolic And Diastolic Provider Name and Address Organization Details Last Updated DateTime 08/03/2023 167.64 cm 35.8 kg/m2 835187.51 g 128/81 mm[Hg] Luz Pierce [facility] 08/03/2023 09:55:48 Date Recorded Body height Body mass index (BMI) Body weight Systolic And Diastolic Provider Name and Address Organization Details Last Updated DateTime 04/01/2022 167.64 cm 34.7 kg/m2 29503.36 g 132/80 mm[Hg] Alexus Barrios [facility] 04/01/2022 10:42:55 Date Recorded Body height Body mass index (BMI) Body weight Systolic And Diastolic Provider Name and Address Organization Details Last Updated DateTime 04/20/2023 167.64 cm 35.8 kg/m2 879302.51 g 132/85 mm[Hg] Latasha [facility] 04/20/2023 10:46:23 Social History Question Answer Notes LastModified by Organizat ion Details LastModified Time Tobacco Smoking Status Never Smoker Lurdes Rodriguez [facility] 06/08/2023 09:55:46 Do You Have An [...] Or The Highest Degree You Have Received? [id number] Information not available 09/24/2020 Are There Any [...] not available 09/24/2020 Are you able to walk independently without assistance or assistive devices? YESWOREST Information not available 09/24/2020 Are you able to care for yourself independently? 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 No Information not available 08/03/2023 What is your exercise level? Moderate Information not available 09/24/2020 Mental Status Question Answer Note LastModified by Organization D etails LastModified Time Do you feel stressed (tense, restless, nervous, or anxious, or unable to sleep at night)? [id number] Information not available 05/25/2023 Family History Relationship Description Onset Age of this Age Resolved Age Notes LastModified by Organization Details LastModified Time Mother Hypertensive disorder Not available 2019 15:09:06 Father Hypertensive disorder Not available 2019 15:09:06 Father Heart disease Not available 2019 15:09:28 Father Hyperlipidem ia [email or web address] Not available 2023 09:51:34 Maternal Grandmother Hypertensive [...] Diagnosis SNOMED-CT Code Diagnosis ICD10 Code Diagnosis IMO Codes Diagnosis Note [id number] Carlos Powell MD [place] [address] [address] 09/24/2020 09:53:12 09/24/2020 11:13:42 Persistent mastalgia 953808950 N64.4 Menopausal symptom 88912 002 E89.41 Gynecologi c examination 73076843 Z01.419 This patient is here for her [...] a mammogram soon. Celebrex was prescribed . [id number] Carlos Powell MD [place] [address] [address] 12/24/2020 09:59:02 12/24/2020 12:26:31 Persistent mastalgia 509082324 N64.4 Menopausal symptom 55024 002 E89.41 This patient is a 45-year-ol [...] issues. these 2 issues are moderately complex. [id number] Carlos Powell MD [place] [address],[place] [address] 04/01/2022 10:36:03 04/01/2022 11:56:44 Gynecologic examination 93159144 Z01.419 Z11.51 This patient is here for [...] ne ciprionate injection. 0.2 mg q week [id number] Carlos Powell MD [place] [address] [address] 04/20/2023 10:22:20 04/20/2023 11:23:05 Hormone replacement therapy 911604134 Z79.890 47-year-ol d female presents for follow-up on hormone replacemen t therapy. She is doing well. She is no complaints . Her hot flashes and night sweats are well-contr olled. She reports satisfacti on with sexual intercours e. No pain. Spent 20 minutes face-to-fa ce. More than 50% was counseling . Talked about obesity, calorie management , exercise. [id number] Carlos Powell MD [place] [address],[facility] [address] 05/25/2023 09:01:53 05/25/2023 10:19:13 Gynecologic examination 79833366 Z01.419 Z11.51 This patient is here for [...] l - [done ] Pap - today [id number] ESTEPHANIA [facility]ias[facility] [address] [address] 06/08/2023 09:55:20 06/08/2023 10:34:16 Labial cyst 758069106 N90.7 right labial majora cyst; in the [...] and review of plan of care. Dyspareunia 09724493 N94 .10 N95.2 Trial of Vag estrogen [...] with a healthcare provider and oncologist . Government -approved low-dose vaginal estrogen products are available by [...] to the vagina are recommende d. Resources: https://[employer] w.Vadioorg/docs /default-s ource/for- women/mn-v aginal-dry ness.pdf [id number] Carlos Powell MD [place] [address] [address] 08/03/2023 09:51:19 08/03/2023 21:52:19 Health Concerns Section Related Observation LastModified by Organization Detai ls LastModified Time None Recorded Concern Status LastModified by Organization Details LastModified Time None Recorded Advance Directives Directive N: Payers Insurance Date Sequence Insurance Name Policy Number Policy Herrera Covered Member ID Herrera Member ID Guarantor Name 04/08/2025 2 [place] [id number] Trever Velazquez [id number] Tamika Panchot-End icott 04/08/2025 1 [employer] (PPO) [id number] Tamika Panchot-En dicott [id number] Tamika Panchot-End icott 09/17/2020 1 *SELF PAY* Ma micheal Panchot-End icott 04/23/2023 2 [place] [id number] Trever Velazquez Jr [id number] Tamika Panchot-End icott 04/08/2025 1 [employer] Tamika Panchot-Go eddel [id number] Tamika Panchot-End icott 09/21/2020 1 [employer] BET[place] - DOS ON OR AFTER 2020 (MEDICAID REPLACEMENT - HMO) [id number] Trever Velazquez [id number] Tamika Panchot-End icott 04/08/2025 1 [employer] [id number] Tamika España eddel [id number] Tamika Tellezhot-End icott 04/08/2025 1 [employer] - [employer] [id number] Tamika Velazquez [id number] Tamika Tellezhot-End icott 09/05/2024 1 [place] [id number] Trever Velazquez [id number] Tamika Tellezhot-End icott Notes Date Note Type Note Provider [...] exercise. Carlos Powell MD [address], [place], [address], [facility] 04/01/2022 11:40:22 04/20/20 23 text/htm l Annual GYNReported by Patient 47-year-old female presents for follow-up on hormone replacement therapy. She is doing well. She is no complaints. Her hot flashes and night sweats are well-controlled. She reports satisfaction with sexual intercourse. No pain. Spent 20 minutes gsor-co-zvfj. More than 50% was counseling. Talked about obesity, calorie management, exercise. Carlos Powell MD [address], [place], [address], [facility] 04/20/2023 11:20:53 05/25/19 24 text/htm l [...] breast examinationandencourage regular exercise. MenopauseReported by Patient aCrlos Powell MD [address], [place], [address], [facility] 05/25/2023 10:03:00 06/08/19 24 text/htm l ROS as noted in the HPI Tamika is [...] d/c, odor, irritation, itchingMonogamousNeg AUB Kelsey Lai, ESTEPHANIA-BC [address], [place], [address], [facility] 06/08/2023 10:33:20 OBGyn Episode Ob Episode Information Episode Created Date Number of Fetuses Patient Bloodtype Patient rh Status Prepregnancy Weight lbs Domestic Partner Domestic Partner Phone Father Name Ship Manager Status 04/21/20 20 1 CLOSED Fetus Data [...] Domestic Partner Domestic Partner Phone Father Name Ship Manager Status 04/21/20 20 1 CLOSED Fetus Data [...] Domestic Partner Domestic Partner Phone Father Name Ship Manager Status 04/21/20 20 1 CLOSED Fetus Data [...] Post Complications Tubal Sterilization Discharge Date Comments 06/21/199 0 Kwan Discharge Information Feeding Method Contraceptive Method Maternal HG B and HCT Levels
[2025-04-21 13:44] LABS: Magnesium 2.1 mg/dL (1.6-2.3)
--- NOTE | 2025-04-21 14:33 | ECG_ITS ---
Test Date: 2025-04-21 14:43:18 Measurements Intervals [place] Rate: 71 P: 51 [place]: 186 QRS: 15 QRSD: 86 T: 1 QT: 383 QTc: 418 Interpretive Statements SINUS RHYTHM LOW QRS VOLTAGE IN PRECORDIAL LEADS BORDERLINE T WAVE ABNORMALITY- ANT/INF LEADS BASELINE ARTIFACT- I, II, AVR, AVL, AVF, V2 BORDERLINE ECG Compared to ECG 04/21/2025 12:01:15 No significant changes Electronically Signed On 04-21-2025 14:46:02 TABLE MAKER by Agustin Cross D.O.
[2025-04-21 15:13] LABS: Troponin I < 0.012 ng/mL (0.000-0.034)
--- NOTE | 2025-04-21 15:41 | P.HP_ITS ---
H&P: HPI History of Present Illness Date/Time: 04/21/25 15:41 Chief Complaint: Chest pain Narrative: 52-year-old female with past medical history of hyperlipidemia, and anxiety presents the hospital with chest pain. Patient states that the pain started at rest. Describes as pressure that radiated to her left arm and jaw. She states that it is heavy. Patient states that she has never had this pain before. Patient denies chest pain on bedside exam. Patient denies fevers chills nausea or vomiting. Lab work shows CBC within normal limits, BMP within normal limits, troponins negative x2. Chest x-ray with no acute findings. EKG shows sinus rhythm with borderline T-wave abnormalities. Patient has a heart score of 3 or 4. She will be admitted for overnight observation and chest pain workup in the morning. Review of Systems Review of Systems: 12 systems were reviewed and are negativ e except for as per HPI. [facility] Past Medical History Medical History (Updated 04/21/25 @ 16:46 by Tanya Sanchez, [employer]) High cholesterol Greater trochanteric bursitis of both hips Lumbar spondylosis Hernia Gallbladder abscess Obesity Anxiety Hx of migraines Surgical History Surgical History History of hernia repair History of cholecystectomy H/O neck surgery H/O: hysterectomy H/O wrist surgery Family History Family History Father , massive VT at 62yo Family history of hypercholesterolemia Hypertension Heart disease Acute myocardial infarction, Onset Age: 62 Mother Family history of migraine headaches Hypertension Family history of development disorder Depression Sibling Asthma Hypertension Grandparent Alcoholism Diabetes mellitus Heart disease Acute myocardial infarction >65yo Other Cerebrovascular accident Family history of malignant neoplasm of breast Social History Social History Smoking status: Never smoker Alcohol intake: never Substance use: never Substance use type: does not use Lack of Transportation: No Lack of Food: Never True Current Housing: I Have Housing Concerned About Future Housing: No Difficulty Paying Gas/Electric Bills: No Difficulty Paying for Meds: No Currently Unemployed: No Education: High School Diploma/GED Difficulty w/ Childcare or Family Care: No Living arrangements: with family Occupation/Education: occupation Additional occupation/education comments: [employer] Spiritual care concerns: No Meds Home Medications and Allergies Home Medications ?Medication ?Instructions ?Recorded ?Confirmed ?Type alprazolam 0.25 mg tablet (Xanax) 0.25 mg PO DAILY PRN anxiety 04/21/25 04/21/25 History Allergies Allergy/AdvReac Type Severity Reaction Status Date / Time amoxicillin Allergy Mild Rash Verified 04/21/25 16:43 Vital Signs Vital Signs - 24 hr 04/21/25 11:58 04/21/25 11:58 04/21/25 11:59 Temperature 97.4 F L Pulse Rate 81 89 Respiratory Rate 18 17 Blood Pressure 171/106 H 171/106 H Pulse Oximetry 100 100 Oxygen Delivery Room Air Room Air 04/21/25 12:31 04/21/25 13:16 04/21/25 13:24 Temperature Pulse Rate 75 70 73 Respiratory Rate 14 17 18 Blood Pressure 142/86 H 137/93 H 137/93 H Pulse Oximetry 100 Oxygen Delivery 04/21/25 13:46 04/21/25 14:46 04/21/25 15:01 Temperature Pulse Rate 69 71 72 Respiratory Rate 18 20 18 Blood Pressure 130/87 137/83 138/83 Pulse Oximetry 100 100 100 Oxygen Delivery 04/21/25 15:16 04/21/25 15:31 Temperature Pulse Rate 73 74 Respiratory Rate 11 L 16 Blood Pressure 138/82 142/85 H Pulse Oximetry 100 100 Oxygen Delivery Exam Narrative: General: well appearing, appears stated age. HEENT: normocephalic, atraumatic. Mucous membranes moist. EOMI, PERRLA, bilateral sclera anicteric, no conjunctival injection. Neck supple without JVD, lymphadenopathy, or bruit. Respiratory: clear bilaterally. No rales/rhonic/wheezes. Cardiovascular: Regular rate and rhythm, normal S1-S2. No murmurs, rubs, or clicks. PMI is nondisplaced, capillary refill less than 3 second. Abdomen: Soft, round, no pulsatile masses, nondistended and nontender. No rebound, no guarding. Bowel sounds present to all four quadrants. No high pitch or tinkling sounds, resonant to percussion. Extremities: No cyanosis, clubbing, or edema present. Pulses are palpable 2/2. Active ROM to all four extremities. Neuro: Alert and orientated x 4. PERRLA. Cranial nerves 2-12 intact without focal deficit. Skin: Warm, dry, and intact, without rash, erythema, or lesion. Psych: pleasant, cooperative, normal speech, normal affect, no hallucinations, no dysarthia Results Labs Labs: Short CBC 04/21/25 Range/Units 12:08 WBC 6.2 (4.5-10.0) K/mm3 Hgb 12.8 (12.0-15.0) g/dL Hct 38.2 (37.0-47.0) % Plt Count 295 (150-375) k/mm3 BMP 04/21/25 12:08 Sodium 138 Potassium 3.8 Chloride 106 Carbon Dioxide 27 BUN 14 Creatinine 0.78 Glucose 100 Calcium 9.3 Cardiac Enzymes 04/21/25 04/21/25 Range/Units 12:08 14:40 Troponin I < 0.012 < 0.012 (0.000-0.034) ng/mL Liver Function 04/21/25 Range/Units 12:08 Total Bilirubin 0.5 (0.2-1.3) mg/dL AST 28 (14-36) U/L ALT 17 (6-35) U/L Alkaline Phosphatase 114 (38-126) U/L Albumin 4.6 (3.5-5.1) g/dL Quality VTE Prophylaxis VTE prophylaxis: pharmacologic ordered Assessment and Plan Assessment and plan (1) Chest pain: Qualifiers: Chest pain type: unspecified Qualified Code(s): R07.9 - Chest pain, unspecified Code(s): R07.9 - Chest pain, unspecified Status: Acute Assessment and Plan: Heart score 4 or 5 Trend troponin No need for heparin at this time Echocardiogram pending Stress test pending (2) High cholesterol: Code(s): E78.00 - Pure hypercholesterolemia, unspecified Status: Acute Assessment and Plan: Lipid panel pending Not on medications (3) Anxiety: Code(s): F41.9 - Anxiety disorder, unspecified Status: Acute Assessment and Plan: Continue home Xanax Hospitalist MIPS Advance Care Plan I have confirmed that the patient's Advanced Care Plan is present, code status is documented, or surrogate decision maker is listed in patient medical record.: Yes Medication Reconciliation I have utilized all available resources to obtain, update and review the patients current medications (includes all prescriptions, OTC, herbals, cannabis, and nutritional supplements).: Yes
--- NOTE | 2025-04-21 16:07 | WPCEDHO ---
ED Hand Off Checklist All vitals saved: yes IV Site documented:yes All med administrations documented:yes Triage Note Triage Note midsternal chest pain that goes 04/21/25 11:58 in to left arm and left side of jaw since this afternoon. States arm feels heavy. Denies SOB or N/V Allergies amoxicillin Allergy (Mild, Verified 04/21/25 13:29) Rash vomiting Family History (Last Reviewed 04/21/25 @ 12:20 by Leah Pacheco MD) Father Family history of hypercholesterolemia Hypertension Heart disease Acute myocardial infarction Mother Family history of migraine headaches Hypertension Family history of development disorder Depression Sibling Asthma Hypertension Grandparent Alcoholism Diabetes mellitus Heart disease Acute myocardial infarction Other Cerebrovascular accident Family history of malignant neoplasm of breast Administered/Completed Medications Discontinued Medications Aspirin (Aspirin 81 Mg Chewable Tablet) 324 mg PO ONCE STA Stop: 04/21/25 11:59 Last Admin: 04/21/25 12:14 Dose: 324 mg Documented By: LEV Interventions/Assessments IV / Saline Lock, Insert Start: 04/21/25 11:58 Freq: STAT Status: Active Protocol: Document 04/21/25 12:09 LEV (Rec: 04/21/25 12:10 LEV [id number]) IV Assessment Peripheral Access Left Antecubital IV Catheter Access Initiated IV Insertion Date 04/21/25 IV Insertion Time 12:10 Catheter Gauge 20 IV Insertion 1 Attempts Ultrasound Used for No Placement IV Site Assessment WNL IV Care and WNL Maintenance PA: Cardiovascular Assessment Start: 04/21/25 11:46 Freq: Status: Active Protocol: Document 04/21/25 11:58 CMM (Rec: 04/21/25 12:03 CMM [id number]) Chest Pain Assessment Chest Pain Location Left Chest Description and Heaviness Symptoms Chest Pain Radiation Left Arm,Left Jaw PA: Respiratory Assessment Start: 04/21/25 11:46 Freq: Status: Active Protocol: Document 04/21/25 11:58 CMM (Rec: 04/21/25 12:03 CMM [id number]) Respiratory Assessment Symptoms None Effort Normal Cough Description None Oxygen Delivery Oxygen Delivery Room Air Last Vital Signs Temperature 97.4 F L 04/21/25 11:58 Pulse Rate 74 04/21/25 15:31 Respiratory Rate 16 04/21/25 15:31 Pulse Oximetry 100 04/21/25 15:31 Blood Pressure 142/85 H 04/21/25 15:31 Blood Pressure Mean 101 04/21/25 15:31 Blood Pressure Position Sitting 04/21/25 11:58 Oxygen Delivery Room Air 04/21/25 11:58 Weight 95.9 kg 04/21/25 11:58 Last Result - Abnormals Only MPV 10.7 fl (7.4-10.4) H 04/21/25 12:08 Most Recent Suicide Severity Rating Suicide Severity Rating NO RISK INDICATED 04/21/25 11:58
--- NOTE | 2025-04-21 17:48 | PC.NURSE ---
Patient arrived to the floor via stretcher from the ER @ 1624pm. Ambulatory upon transfer assessment. Alert and oriented at this time. Denies pain or discomfort at this time. surveillance monitor placed on and functioning, Vital signs obtained. No acute distress noted.
[2025-04-21 18:36] LABS: Troponin I < 0.012 ng/mL (0.000-0.034)
[2025-04-22] VITALS (10 sets, daily range): BP systolic 120–137; BP diastolic 65–96; PULSE 71–90; RESP 18–20; TEMP 36.3–36.9; O2SAT 98–100
--- NOTE | 2025-04-22 | EST_ITS ---
Patient Info Name: Tamika Velazquez Age: 49 years : 1975 Gender: Female Ht: 68 in Wt: 204 lbs BSA: 2.13 m2 HR: 86 bpm BP: 144 / 85 mmHg Exam Date: 04/22/2025 7:00 AM Patient Status: I Admit Date: 04/21/2025 Exam Type: CA stress test treadmill w NM A nuclear stress test was performed. Staff Referring Physician: Tanya Sanchez Attending Provider: Jd Hinojosa Oca Exercise Technologist: Otilia Reinoso Exercise Physician: Agustin Cross DO Summary 1. 1. Negative Javier exercise stress test for ischemic ST changes by ECG criteria. 2. 2. Poor functional capacity, achieving 4.7 METs of workload. 3. 3. Baseline hypertension. 4. 4. Rapid HR response to exercise. 5. 5. Appropriate HR recovery at 1 minute post exercise. 6. 6. Nuclear scan to follow and will be reported separately. Please correlate with it. 7. 7. Patient informed of the above results. Protocol: Javier Stress ECG Details Stage: REST Duration (min): 0 min : 44 sec Speed (mph): 0.0 Grade (%): 0 HR (bpm): 87 SBP (mmHg): 144 DBP (mmHg): 85 METS: --- Stage: REST Duration (min): 18 min : 4 sec Speed (mph): 0.0 Grade (%): 0 HR (bpm): 111 SBP (mmHg): 144 DBP (mmHg): 85 METS: --- Stage: STAGE 1 Duration (min): 1 min : 0 sec Speed (mph): 1.7 Grade (%): 10 HR (bpm): 139 SBP (mmHg): 144 DBP (mmHg): 85 METS: --- Stage: STAGE 1 Duration (min): 2 min : 0 sec Speed (mph): 1.7 Grade (%): 10 HR (bpm): 155 SBP (mmHg): 144 DBP (mmHg): 85 METS: --- Stage: STAGE 1 Duration (min): 3 min : 0 sec Speed (mph): 1.7 Grade (%): 10 HR (bpm): 152 SBP (mmHg): 176 DBP (mmHg): 116 METS: --- Stage: RECOVERY Duration (min): 0 min : 59 sec Speed (mph): 0.0 Grade (%): 0 HR (bpm): 133 SBP (mmHg): 176 DBP (mmHg): 116 METS: --- Stage: RECOVERY Duration (min): 1 min : 59 sec Speed (mph): 0.0 Grade (%): 0 HR (bpm): 125 SBP (mmHg): 176 DBP (mmHg): 116 METS: --- Stage: RECOVERY Duration (min): 2 min : 59 sec Speed (mph): 0.0 Grade (%): 0 HR (bpm): 107 SBP (mmHg): 176 DBP (mmHg): 116 METS: --- Stage: RECOVERY Duration (min): 3 min : 59 sec Speed (mph): 0.0 Grade (%): 0 HR (bpm): 107 SBP (mmHg): 176 DBP (mmHg): 116 METS: --- Stage: RECOVERY Duration (min): 4 min : 59 sec Speed (mph): 0.0 Grade (%): 0 HR (bpm): 107 SBP (mmHg): 140 DBP (mmHg): 103 METS: --- Stage: RECOVERY Duration (min): 5 min : 59 sec Speed (mph): 0.0 Grade (%): 0 HR (bpm): 106 SBP (mmHg): 140 DBP (mmHg): 103 METS: --- Stage: RECOVERY Duration (min): 6 min : 59 sec Speed (mph): 0.0 Grade (%): 0 HR (bpm): 109 SBP (mmHg): 136 DBP (mmHg): 96 METS: --- Stage: RECOVERY Duration (min): 7 min : 3 sec Speed (mph): 0.0 Grade (%): 0 HR (bpm): 109 SBP (mmHg): 136 DBP (mmHg): 96 METS: --- Rest HR: 111 bpm Peak HR: 163 bpm Rest Sys BP: 144 mmHg Peak Sys BP: 176 mmHg Max Pred HR: 169 bpm % Max Pred HR: 96 % Target HR: 144 bpm Max RPP: 28,688 bpm*mmHg Forrest Score: -2 Termination Reason: Reached target heart rate or workload Cardiac Symptoms: Shortness of breath Max ST Seg Deviation: -0.90 mm Total Time: 3 min : 0 sec Rest Amos BP: 85 mmHg Peak Amos BP: 116 mmHg Angina Score: None Total METS: 4.7 Resting ECG Sinus tachycardia. Stress ECG No ST changes. Arrhythmias None. Report Signatures
--- NOTE | 2025-04-22 | ECHO_ITS ---
Patient Info Name: Tamika Velazquez Age: 49 years : 1975 Gender: Female Ht: 68 in Wt: 203 lbs BSA: 2.13 m2 HR: 74 bpm BP: 137 / 88 mmHg Technical Quality: Fair Exam Date: 04/22/2025 9:12 AM Patient Status: unknown Admit Date: 04/21/2025 Exam Type: CA echo dop color flow w con Complete two-dimensional, color flow and Doppler transthoracic echocardiogram is performed with contrast to opacify the left ventricle and to improve the deliniation of the left ventricle endocardial borders. Staff Referring Physician: Tanya Sanchez Systems Integration Engineer: Stu Vega III Attending Provider: Jd Hinojosa Oca Contrast/Agitated Saline Contrast/Ag. Saline: Definity Amount: 2.00 ml Administered By: Stu Vega III Existing IV Access: Yes IV Access Condition: patent with no signs of infiltration Summary 1. Left ventricular systolic function is normal, estimated at 60-65. 2. The left ventricular diastolic function is normal. Left Ventricle Left ventricular chamber dimension is normal. Left ventricular systolic function is normal, estimated at 60-65. There is no increased left ventricular wall thickness. Left ventricular septal wall motion is normal. The left ventricular diastolic function is normal. Right Ventricle Right ventricular chamber dimension is normal. Right ventricular systolic function is normal. Left Atria Left atrial chamber dimension is normal. Right Atria Right atrial chamber dimension is normal. Aortic Valve The aortic valve is trileaflet. There is no aortic valve sclerosis. There is no aortic valve stenosis. There is no aortic valve regurgitation. Pulmonic Valve The pulmonic valve is normal. There is no pulmonic valve stenosis. There is no pulmonic regurgitation. Mitral Valve The mitral valve has normal leaflets. There is no mitral valve stenosis. There is no mitral valve regurgitation. Tricuspid Valve The tricuspid valve leaflets are normal. There is no significant tricuspid valve stenosis. There is no tricuspid valve regurgitation. Pericardium/Pleural The pericardium appears normal. There is no pericardial effusion. Inferior Vena Cava Normal inferior vena cava with >50% collapse upon inspiration consistent with normal right atrial pressure, 5 mmHg. Aorta The aortic root size at the sinus of Valsalva is normal. The prox ascending aorta size is normal. Left Ventricular Outflow Tract Name Value Normal LVOT 2D LVOT Diameter 2.1 cm LVOT Doppler LVOT Peak Velocity 95 cm/s LVOT Peak Gradient 4 mmHg LVOT Mean Gradient 2 mmHg LVOT VTI 21 cm LVOT VTI/AV VTI Ratio 1.0 LVOT Stroke Volume 70 ml LVOT CO 5.2 l/min LVOT CI 2.4 l/min/m2 Pulmonic Valve Name Value Normal PV Doppler PV Peak Velocity 87 cm/s PV Peak Gradient 3 mmHg PV Mean Gradient 2 mmHg Mitral Valve Name Value Normal MV Doppler MV Peak Gradient 2 mmHg MV Mean Gradient 1 mmHg MV Area (Cont Eq VTI) 3.6 cm2 MV Diastolic Function MV E Peak Velocity 65 cm/s MV A Peak Velocity 85 cm/s MV E/A 0.8 MV Decel Time (PW) 198 ms MV Annular TDI MV E/e' (Septal) 9.6 MV E/e' (Lateral) 5.7 MV E/e' (Average) 7.6 Tricuspid Valve Name Value Normal Estimated PAP/RSVP RA Pressure 5 mmHg <=5 TV Annular TDI TV Lateral Marie s' Velocity 9.3 cm/s >=9.5 Aortic Valve Name Value Normal AV Doppler AV Peak Velocity 118 cm/s AV Peak Gradient 6 mmHg AV Mean Gradient 2 mmHg AV VTI 22 cm AV Area (Cont Eq VTI) 3.2 cm2 >=3.0 AV Area (Cont Eq Luis) 2.7 cm2 AV DI (Luis) 0.80 AV Regurgitation 2D LVOT Area 3.4 cm2 Ventricles Name Value Normal LV Dimensions 2D/MM IVS Diastolic Thickness (2D) 1.1 cm 0.6-1.0 LVID Diastole (2D) 4.2 cm 3.8-5.2 LVIW Diastolic Thickness (2D) 1.1 cm 0.6-0.9 LVID Systole (2D) 3.1 cm 2.2-3.5 LVOT Diameter 2.1 cm LV Mass (2D Cubed) 153.60 g 67.00-162.00 LV Mass Index (2D Cubed) 72 g/m2 43-95 Relative Wall Thickness (2D) 0.52 <=0.42 LV Fractional Shortening/Ejection Fraction 2D/MM LV Fractional Shortening (2D) 27 % 27-45 LV EF (2D Teichholz) 53 % LV Diastolic Volume (4C MOD) 85 ml LV EF (4C MOD) 61 % LV Diastolic Volume (2C MOD) 66 ml LV EF (2C MOD) 68 % LV Diastolic Volume (BP MOD) 80 ml 46-106 LV Diastolic Volume Index (BP MOD) 37 ml/m2 29-61 LV Systolic Volume (BP MOD) 27 ml 14-42 LV Systolic Volume Index (BP MOD) 13 ml/m2 8-24 LV EF (BP MOD) 67 % 54-74 LV Diastolic Length (4C) 8.0 cm LV Systolic Length (4C) 6.3 cm LV Stroke Volume (4C MOD) 52 ml Atria Name Value Normal LA Dimensions LA Volume (4C A-L) 36 ml RA Dimensions RA Systolic Major Friendship Length (4C) 5.7 cm 2.2-2.8 RA Area (4C) 16.5 cm2 <=18.0 Report Signatures
[2025-04-22 04:25] LABS: Hematocrit 38.0 % (37.0-47.0); Hemoglobin 12.4 g/dL (12.0-15.0); Immature Granulocyte Percent A 0.2 % (0-0.5); Lymphocytes Absolute Auto 1.75 K/mm3 (0.9-3.2); Mean Corpuscular HGB Conc 32.6 g/dl (32-36); Mean Corpuscular Hemoglobin 28.7 pg (26-34); Mean Corpuscular Volume 88.0 fl (80-100); Nucleated Red Blood Cells Absolute Auto 0.000 K/mm3 (0.0-0.012); Nucleated Red Blood Cells Perc 0.0 % (0.0-0.2); Platelet Count Result 263 k/mm3 (150-375); Red Blood Count 4.32 M/mm3 (4.2-5.4); White Blood Count 4.4 K/mm3 (4.5-10.0)
[2025-04-22 04:44] LABS: Anion Gap 4 mmol/L (4-12); Blood Urea Nitrogen 13 mg/dL (7-17); Calcium 9.3 mg/dL (8.4-10.2); Carbon Dioxide 29 mmol/L (22-30); Chloride 106 mmol/L (98-107); Cholesterol 208 mg/dL (0-200); Estimated CRCL calculation 85 ml/min; Estimated Glomerular Filt Rate > 60; Glucose 102 mg/dL (65-110); HDL Direct 47 mg/dL; Magnesium 2.2 mg/dL (1.6-2.3); Potassium 4.1 mmol/L (3.4-5.0); Sodium 139 mmol/L (137-145); Triglycerides 87 mg/dL (<150)
[2025-04-22] MEDS: ENOXAPARIN 40 MG/0.4 ML SYRINGE SUB-Q (08:38)
[2025-04-22] MEDS: ASPIRIN 81 MG CHEWABLE TABLET PO (08:38)
[2025-04-22] MEDS: ACETAMINOPHEN 325 MG TABLET 650 MG PO (08:38)
[2025-04-22] MEDS: PERFLUTREN LIPID MICROSPHERES 1.5 ML VIAL DILUTED TO 10 ML TOTAL VOLUME IV PUSH (11:19)
--- NOTE | 2025-04-22 11:19 | IVDEFINITY ---
Prior to administration of IV Definity the patient was educated on the risks and benefits of the imaging enhancing agent including potential adverse side effects. The patient verbalized understanding. Allergies were verified. No exclusion criteria were identified and at least one of the following inclusion criteria were met: 1) physician request, 2) patient technically difficult to image (per the [place] [employer] Echocardi[employer] guidelines of two or more segments not discernable within the apical view), or 3) questionable left ventricular function. ?
--- NOTE | 2025-04-22 14:26 | P.DS_ITS ---
DS: Admitting Diagnosis Discharge Date 04/22/2025 Admitting Diagnosis Chest pain DS: Discharge Diagnosis Discharge Diagnosis (1) Chest pain: Qualifiers: Chest pain type: unspecified Qualified Code(s): R07.9 - Chest pain, unspecified Code(s): R07.9 - Chest pain, unspecified Status: Acute Assessment and Plan: Heart score 4 or 5 Trend troponin stress test is negative (2) High cholesterol: Code(s): E78.00 - Pure hypercholesterolemia, unspecified Status: Acute Assessment and Plan: cholesterol is 208 (3) Anxiety: Code(s): F41.9 - Anxiety disorder, unspecified Status: Acute Assessment and Plan: Continue home Xanax DS: Summary Hospital Course Hospital Course: 52-year-old female with past medical history of hyperlipidemia, and anxiety presents the hospital with chest pain. Patient states that the pain started at rest. Describes as pressure that radiated to her left arm and jaw. She states that it is heavy. Patient states that she has never had this pain before. Patient denies chest pain on bedside exam. Patient denies fevers chills nausea or vomiting. stress test is negative ok to dc with oral asa because of strong positive family history of mi Status at Discharge Cognitive/behavioral status at discharge: stable Time Spent with Patient Time attestation: Total time spent providing and/or coordinating discharge services:55 minutes Exam Narrative: General: well appearing, appears stated age. HEENT: normocephalic, atraumatic. Mucous membranes moist. EOMI, PERRLA, bilateral sclera anicteric, no conjunctival injection. Neck supple without JVD, lymphadenopathy, or bruit. Respiratory: clear bilaterally. No rales/rhonic/wheezes. Cardiovascular: Regular rate and rhythm, normal S1-S2. No murmurs, rubs, or clicks. PMI is nondisplaced, capillary refill less than 3 second. Abdomen: Soft, round, no pulsatile masses, nondistended and nontender. No rebound, no guarding. Bowel sounds present to all four quadrants. No high pitch or tinkling sounds, resonant to percussion. Extremities: No cyanosis, clubbing, or edema present. Pulses are palpable 2/2. Active ROM to all four extremities. Neuro: Alert and orientated x 4. PERRLA. Cranial nerves 2-12 intact without focal deficit. Skin: Warm, dry, and intact, without rash, erythema, or lesion. Psych: pleasant, cooperative, normal speech, normal affect, no hallucinations, no dysarthia DS: Data Data Completed and Pending Labs on day of discharge: Labs from last 24 hours 04/22/25 04/21/25 04/21/25 03:59 18:04 14:40 WBC 4.4 L RBC 4.32 Hgb 12.4 Hct 38.0 MCV 88.0 MCH 28.7 MCHC 32.6 RDW 13.3 Plt Count 263 MPV 10.6 H Immature Gran % (Auto) 0.2 Neut % (Auto) 49.1 Lymph % (Auto) 39.4 Loup % (Auto) 8.6 H Eos % (Auto) 2.0 Baso % (Auto) 0.7 Lymph # (Auto) 1.75 Loup # (Auto) 0.4 Eos # (Auto) 0.1 Baso # (Auto) 0.0 Abs Immat Gran (auto) 0.01 Absolute Neuts (auto) 2.2 Absolute Nucleated RBC 0.000 Nucleated RBC % 0.0 Sodium 139 Potassium 4.1 Chloride 106 Carbon Dioxide 29 Anion Gap 4 BUN 13 Creatinine 0.81 Estim Creat Clear Calc 85 Estimated GFR > 60 Glucose 102 Calcium 9.3 Magnesium 2.2 Troponin I < 0.012 < 0.012 Triglycerides 87 Cholesterol 208 H LDL Cholesterol Direct 119 HDL Direct 47 Discharge Plan Discharge Attending physician on discharge: Mitra Queen Consulting providers: Mauro David Discharging Clinician: Mitra Queen Anticipated Discharge Date/Time: 04/22/25 14:25 Patient Disposition: Home Activity: as tolerated Diet: as tolerated and regular Patient Instructions: Antibiotic Form Patient Language: Macedonian Stand Alone Forms: General Discharge Information Follow-up/Referrals: Mauro David MD [Physician, Family Practice] Discharge Medications: New aspirin [Children's Aspirin] 81 mg Tablet,Chewable 81 mg PO DAILY@0800 Qty: 30 0RF Continued alprazolam [Xanax] 0.25 mg tablet 0.25 mg PO DAILY PRN (Reason: anxiety) Date of admission: 04/21/25 15:31 Primary Care Provider: PHYSICIAN NOT ON STAFF,NONSTAFF Admitting Provider: Jd Golden Oca Attending physician on admission: Jd Golden Oca Condition: Stable
== END 2025-04-22 17:30 | disposition home or self-care (01) ==
LOC: ANHED 15:31 → ANHIMU 04-22 14:25
PROVIDERS: Nurse Practitioner Gerontology; Admitting Provider Student in an Organized Health Care Education/Training Program; Emergency Provider Student in an Organized Health Care Education/Training Program; Visit Provider Family Medicine
DX: R07.9 Chest pain, unspecified (principal); R60.0 Localized edema; E66.9 Obesity, unspecified; Z68.31 Body mass index [BMI] 31.0-31.9, adult; F41.9 Anxiety disorder, unspecified; E78.00 Pure hypercholesterolemia, unspecified; Z90.49 Acquired absence of other specified parts of digestive tract; Z83.42 Family history of familial hypercholesterolemia; Z82.49 Family history of ischemic heart disease and other diseases of the circulatory system; Z81.0 Family history of intellectual disabilities; Z81.8 Family history of other mental and behavioral disorders; Z82.5 Family history of asthma and other chronic lower respiratory diseases; Z81.1 Family history of alcohol abuse and dependence; Z83.3 Family history of diabetes mellitus; Z82.3 Family history of stroke; Z80.3 Family history of malignant neoplasm of breast
CPT/HCPCS: 36415; 71046; 78452; 80048; 80053; 80061; 83690; 83735; 84484; 85025; 85380; 85610; 85730; 93005; 93017; 99285; A9270; A9502; C8929; G0378; J1650; Q9957